=== PATIENT | female | born 1935 | race Caucasian/White ===

== ENCOUNTER 2019-09-16 15:51 | Inpatient (IN) | payer OTHER, MEDICAID ==
[~2019-09-16] VITALS: Ht 162.6 cm; Wt 57.7 kg
[~2019-09-16 15:51] MED LIST: CLOP75TA28 PO; ENAL20TA PO; METO-159 PO; OMEP20TA37 PO; TRIA25CA PO; ZOLP10TA6 PO
[2019-09-16] MEDS ORDERED: SODIUM CHLORIDE 0.9% 1,000 ML IV ONE (16:02)
[2019-09-16 16:38] LABS: Basophils # (auto) 0 10 ^3/uL (0-0.2); Basophils % (auto) 0.4 % (0.0-2.0); Eosinophils # (auto) 0 10 ^3/uL (0-0.8); Hemoglobin 11.7 g/dL (12.2-16.2); Monocytes # (auto) 0.8 10 ^3/uL (0-1.3); Neutrophils # (auto) 4.7 10 ^3/uL (1.6-8.6); Nucleated Red Blood Cells % 0.1 %; White Blood Cell 6.4 10^3/uL (4.4-10.8)
[2019-09-16 16:40] LABS: Eosinophils % (auto) 0.1 % (0.0-7.0); Hematocrit 33.5 % (36.0-46.0); Lymphocytes # (auto) 0.8 10 ^3/uL (0.4-5.4); Lymphocytes % (auto) 13.1 % (10.0-50.0); Mean Corpuscular Hemoglobin 35.4 pg (28.0-32.0); Mean Corpuscular Hgb Conc. 34.9 g/dL (32.0-36.0); Mean Corpuscular Volume 101.3 fL (80.0-100.0); Monocytes % (auto) 12.4 % (0.0-12.0); Platelet Count (auto) 168 10^3/uL (140-450); Red Blood Cells 3.31 10^6/uL (4.0-5.20); Red Cell Distribution Width 13.3 % (11.8-14.3)
[2019-09-16 16:45] LABS: Alanine Aminotransferase 25 U/L (13-56); Albumin 2.8 g/dL (3.4-5.0); Anion Gap 8 (5-15); Aspartate Aminotransferase 32 U/L (15-37); BUN/Creatinine Ratio 28.9; Blood Urea Nitrogen 28 mg/dL (7-18); Calcium 8.1 mg/dL (8.5-10.1); Carbon Dioxide 29 mmol/L (21-32); Chloride 97 mmol/L (98-107); GFR African American 70 mL/min; GFR Non-African American 58 mL/min; Glucose 109 mg/dL (74-106); Sodium 134 mmol/L (136-145)
[2019-09-16 16:49] LABS: Alkaline Phosphatase 53 U/L (45-117); Bilirubin, Total 1.4 mg/dL (0.2-1.0); Total Protein 6.5 g/dL (6.4-8.2)
[2019-09-16 16:54] LABS: Partial Thromboplastin Time 26.3 sec (23.64-32.05)
[2019-09-16 16:55] LABS: Potassium 2.7 mmol/L (3.5-5.1)
[2019-09-16 17:13] LABS: Urine Bacteria FEW /hpf (None Seen); Urine Blood 1+ /uL (Negative); Urine Hyaline Cast FEW /lpf (0 - 2); Urine Mucus FEW (None Seen); Urine Specific Gravity 1.015 (1.001-1.035); Urine WBC 45 /hpf (0 - 5); Urine WBC Clumps PRESENT /hpf (None Seen)
[2019-09-16] MEDS ORDERED: POTASSIUM EFFERVESENT TAB 25 MEQ PO ONE (17:30)
[2019-09-16] MEDS ORDERED: ACETAMINOPHEN 500 MG TAB PO PRN (19:15)
[2019-09-16] MEDS ORDERED: NITROGLYCERIN 0.4 MG SL TAB SL PRN (19:15)
[2019-09-16] MEDS ORDERED: ONDANSETRON HCL 4 MG/2 ML VIAL IV PRN (19:15)
[2019-09-16] MEDS ORDERED: MORPHINE SULF INJ 2 MG/ML SYRINGE 1ML IV PRN (19:15)
[2019-09-16] MEDS ORDERED: cefTRIAXone 1GM/50ML D5W 50 ML IV ONE (19:30)
[2019-09-16] MEDS: FAMOTIDINE 20 MG TAB PO SCH (19:33)
[2019-09-16] MEDS: SODIUM CHLORIDE 0.9% 1,000 ML IV SCH (19:33)
[2019-09-16 19:43] LABS: Cholesterol 172 mg/dL (< 200)
[2019-09-16 19:45] LABS: HDL Cholesterol 93 mg/dL (40-59); LDL Cholesterol 68 mg/dL (< 100); Triglycerides 85 mg/dL (< 150)
--- NOTE | 2019-09-16 20:05 | NUR ---
MS admit from ER [facility] admitted to [facility]. Patient oriented to RHONDA CHEUNG, RN primary RN, unit, room, bed, and unit policies regarding patient care and visiting hours. Patient weighed by bedscale and encouraged to call if they need something. All questions and concerns addressed, patient verbalized understanding.
[2019-09-16 20:15] VITALS: BP 123/65
--- NOTE | 2019-09-16 20:34 | NUR ---
Medication Reconciliation Spoke with patient's daughter Ercily regarding patient's home medications. Per patient and daughter, patient has Alzheimer's disease/forgetfulness and patient's daughter does not know currently know the home medications but daughter will call after she gets the home medications.
--- NOTE | 2019-09-16 21:45 | NUR ---
Wound photo taken of skin tear on left upper arm. Wound covered with optifoam.
[2019-09-16 22:00] VITALS: BP 123/65
--- NOTE | 2019-09-16 22:31 | NUR ---
Pain Medication Administration Patient complaining of left leg pain 8/10. Patient is requesting Tylenol 500mg PO to be administered. Explained pain medications to patient, patient verbalized understanding, continues to request Tylenol. Will administer Tylenol per MD order. Will reassess pain level and will continue to monitor.
--- NOTE | 2019-09-16 23:31 | NUR ---
Pain Level Reassessment Patient's pain level reassessed to be 5/10. Offered nonpharmacological interventions, patient states pain level is tolerable. No signs or symptoms of distress noted. Will continue to monitor.
[2019-09-17 05:00] VITALS: BP 124/58
[2019-09-17 05:54] LABS: Basophils # (auto) 0 10 ^3/uL (0-0.2); Eosinophils # (auto) 0 10 ^3/uL (0-0.8); Hemoglobin 10.5 g/dL (12.2-16.2); Lymphocytes # (auto) 0.5 10 ^3/uL (0.4-5.4); Monocytes # (auto) 0.7 10 ^3/uL (0-1.3); Neutrophils # (auto) 3.8 10 ^3/uL (1.6-8.6); Nucleated Red Blood Cells % 0.1 %; White Blood Cell 5.1 10^3/uL (4.4-10.8)
[2019-09-17 05:56] LABS: Basophils % (auto) 0.4 % (0.0-2.0); Eosinophils % (auto) 0.3 % (0.0-7.0); Hematocrit 29.7 % (36.0-46.0); Lymphocytes % (auto) 10.4 % (10.0-50.0); Mean Corpuscular Hemoglobin 36.1 pg (28.0-32.0); Mean Corpuscular Hgb Conc. 35.3 g/dL (32.0-36.0); Mean Corpuscular Volume 102.3 fL (80.0-100.0); Monocytes % (auto) 13.7 % (0.0-12.0); Neutrophils % (auto) 75.2 % (37.0-80.0); Platelet Count (auto) 149 10^3/uL (140-450); Red Cell Distribution Width 13.2 % (11.8-14.3)
[2019-09-17 06:27] LABS: Albumin 2.6 g/dL (3.4-5.0); BUN/Creatinine Ratio 31.4; Bilirubin, Total 1.3 mg/dL (0.2-1.0); Calcium 7.9 mg/dL (8.5-10.1); Total Protein 5.9 g/dL (6.4-8.2)
[2019-09-17 06:37] LABS: Potassium 2.9 mmol/L (3.5-5.1)
--- NOTE | 2019-09-17 06:53 | NUR ---
Critical K+ Level Paged Hospitalist. Critical lab value Potassium 2.9. Awaiting call back.
[2019-09-17] MEDS ORDERED: POTASSIUM CHL 20 Meq TABLET PO ONE (07:00)
--- NOTE | 2019-09-17 07:20 | NUR ---
Opening Shift Note Assumed care of patient, awake and alert, djiboutian speaking. No S/S of distress/SOB, reports lt leg pain. Instructed on POC and to call for assist PRN, will continue to monitor for changes Q1hr and PRN.
[2019-09-17] MEDS: SODIUM CHLORIDE 0.9% 1,000 ML IV SCH (09:01)
[2019-09-17] MEDS: cefTRIAXone 1GM/50ML D5W 50 ML IV SCH (09:02)
[2019-09-17] MEDS: FAMOTIDINE 20 MG TAB PO SCH (09:02)
[2019-09-17 09:13] VITALS: BP 136/61
[2019-09-17] MEDS ORDERED: INFLUENZA QUAD 2019-2020 0.5ml SYRG IM ONE (10:00)
[2019-09-17] MEDS ORDERED: PNEUMOCOCCAL VACC POLYS 25 MCG/0.5 ML VIAL IM ONE (10:00)
--- NOTE | 2019-09-17 10:50 | NUR ---
WOUND CARE NOTE: Wound care in to see patient per wound care request regarding skin tear on left arm that are noted present on admission. Bedside nurse took photograph of patient's wound upon admission for reference. Patient is 84 years old female with admitting diagnosis of Lt Intertrochanteric Femur Fracture. Patient is resting in bed in Rm. 278B. Patient is awake, alert and oriented. Patient denies any pain at this time. She needs assistance in turning and repositioning and her Elias score is 12. Skin/wound assessment done with the assistance of patient's nurse, UDAY Cohen. Patient's Lt upper arm noted with 1x1.5cm open partial thickness sin tears. Wound is red with pink and purple ecchymotic elizabeth wound, scant serous drainage, noted, no odor noted. On reports, patient had a fall at home sustaining skin tear to L arm and L femur fracture. Patient has pending ortho consult. Cleansed patient's Lt upper arm skin tear with NS, patted dry with gauze, applied Thera honey gel and covered wound with Optifoam gentle dressing. Assisted patient to turned to her Rt side, sacral, back and heels are examined, no other wound noted, no pressure injury noted. Patient tolerated well. Repositioned patient for comfort facing her Rt side, redistributed pressure points with pillows. Be din low position, call vega within reach, bed alarm on. RECOMMENDATION: Nursing to continue with BID/PRN cleaning and application of Barrier cream to sacral buttocks as preventative, Q3D/PRN dressing change to Lt upper arm skin tear per MD order, frequent turning and repositioning schedule as condition permits, redistribute pressure points with pillows,elevate heels on pillows, continue monitoring by wound care while patient is hospitalized. Addendum: 09/17/19 at 1224 by Marce Mancera RN Amended: Links added.
[2019-09-17] MEDS: MORPHINE SULF INJ 2 MG/ML SYRINGE 1ML IV PRN ×2 (11:36→21:52)
[2019-09-17 13:00] VITALS: BP 138/68
[2019-09-17] MEDS: HYDROcodone-ACET 5/325MG TAB PO PRN (13:41)
--- NOTE | 2019-09-17 14:47 | NUR ---
Nutrition Assessment Notes Please refer to link for full assessment notes. Est Energy needs: 2324-1595 kcals (20-23 kcal/kgBW) Est Protein needs: 64-70 gms/day (1.0-1.1 gm/kgBW) Will continue to monitor and reassess prn. Addendum: 09/17/19 at [address] Amended: Links added.
[2019-09-17 17:00] VITALS: BP 115/50
--- NOTE | 2019-09-17 19:10 | NUR ---
Opening Note Assumed care of patient, awake, very confused. Patient is asking for people that are obviously not part of the hospital team. She forgets where she is at and why. Constant reorientation needed. No S/S of distress/SOB. Instructed on POC and to call for assist PRN, will continue to monitor for changes Q1hr and PRN. Call light with in reach, bed on the lowest position. Room is near the nurse's station.
[2019-09-17 22:00] VITALS: BP 143/62
--- NOTE | 2019-09-17 22:20 | NUR ---
Patient was treated for pain, repositioned in bed for comfort. Will cont to monitor.
[2019-09-18] MEDS: SODIUM CHLORIDE 0.9% 1,000 ML IV SCH (00:26)
--- NOTE | 2019-09-18 01:42 | NUR ---
Patient resting, no signs of distress.
[2019-09-18 05:00] VITALS: BP 138/59
[2019-09-18] MEDS ORDERED: POTASSIUM CHL 20 Meq TABLET PO ONE ×2 (07:30→11:00)
[2019-09-18] MEDS ORDERED: POTASSIUM CHLORIDE 40 MEQ, LIDOCAINE 1% (LOCAL ANESTH.) 4 ML in SODIUM CHL 0.9% 100 ML IV ONE (07:30)
--- NOTE | 2019-09-18 07:30 | NUR ---
Opening Note Assumed patient care from VASILE RN.
--- NOTE | 2019-09-18 09:00 | NUR ---
Family Patient has moments of forgetfulness. Patient request that I speak to daughter regarding plan of care and if MD will speak with daughter.
--- NOTE | 2019-09-18 09:15 | NUR ---
MD Called Spoke with Dr. Lacey, will speak with daughter regarding plan of care/surgery, per family request.
[2019-09-18 09:33] VITALS: BP 147/72
[2019-09-18] MEDS: FAMOTIDINE 20 MG TAB PO SCH (09:41)
[2019-09-18] MEDS: cefTRIAXone 1GM/50ML D5W 50 ML IV SCH (09:41)
--- NOTE | 2019-09-18 10:13 | NUR ---
Spoke with Family Spoke with daughterChey, password confirmed. Per daughter, Dr. Lacey spoke with her and updated on surgery and possible risk factors. Per daughter, family agrees with need for surgery. Patient is agreeable to surgery at this time. Per designer writer, okay to keep consents previously signed by patient as patient, although patient has periods of forgetfullness, patient was able to tell RN her name, , year, place, and situation.
[2019-09-18 10:30] LABS: Calcium 8.1 mg/dL (8.5-10.1); Potassium 3.3 mmol/L (3.5-5.1)
[2019-09-18] MEDS ORDERED: POTASSIUM CHL 20MEQ/100ML 100 ML IV ONE (11:00)
--- NOTE | 2019-09-18 11:23 | NUR ---
Consult Pt with low BS of 12, skin tear left upper arm. Pt with 100% po of one recorded meal in RN doc. Will continue to monitor pt's skin status and po intake. Est Energy needs: 0861-7871 kcals (20-23 kcal/kgBW) Est Protein needs: 64-70 gms/day (1.0-1.1 gm/kgBW) Will continue to monitor and reassess prn. Consider adding ensure high protein once a day if pt po intake is inadequate
[2019-09-18] MEDS ORDERED: VANCOMYCIN HCL 1000 MG VL ONE (11:29)
--- NOTE | 2019-09-18 11:53 | NUR ---
MD Called Spoke with Dr. Lacey regarding patient plan of care. Per MD, patient will continue with electrolyte replacement, surgery to continue as scheduled tomorrow at 0700 if potassium levels return to normal limits.
[2019-09-18 12:28] VITALS: BP 149/64
[2019-09-18 15:56] LABS: BUN/Creatinine Ratio 22.4; Calcium 7.7 mg/dL (8.5-10.1); Potassium 5.1 mmol/L (3.5-5.1)
--- NOTE | 2019-09-18 16:09 | NUR ---
Assessment Patient is an 84-year-old female who is alert and oriented. Prior to admission patient lived home with her ex and functioned independently. Per Patient she can care for her own ADLs. Per patient she does not have any medical equipment now. Advised Patient there is a Social Service consult for SNF placement. Per Patient she is unsure if she would like to be placed at a rehabilitation and would like to speak to her ex first before making a decision. Informed patient a physical therapy evaluation will be needed if she decides to go to a [facility] nursing facility. Informed Patient she has the right to speak to a social director regarding all care. Informed Patient she has the right to participate in all discharge planning. Informed UDAY Wade a physical therapy evaluation will be needed in order to proceed with order. Addendum: 09/18/19 at 1614 by MICHAEL VINCENT Amended: Links added.
--- NOTE | 2019-09-18 16:22 | NUR ---
Called MD Left message with Dr. Akhil Ashby regarding patient status and request for physical therapy evaluation for SNF placement on discharge.
[2019-09-18 16:32] VITALS: BP 117/61
--- NOTE | 2019-09-18 19:26 | NUR ---
Closing Note Report given to VASILE FRYE.
--- NOTE | 2019-09-18 19:28 | NUR ---
Opening note Assumed care of patient. Patient alert and orientated x4. Monegasque speaking. No distress or SOB noted at this time. POC reviewed. Patient has no questions at this time. Patient states she wants pain medication. Medicated per MD orders. Bed locked in lowest position. Side rails up x2. Call light within reach. Bed alarm on. Will continue to monitor.
[2019-09-18] MEDS: MORPHINE SULF INJ 2 MG/ML SYRINGE 1ML IV PRN (20:36)
[2019-09-18] MEDS ORDERED: SOD CHL 0.9%/ KCL 40MEQ 1,000 ML IV SCH (21:00)
[2019-09-18] MEDS ORDERED: LACTATED RINGER'S 1,000 ML IV SCH (21:00)
[2019-09-18 22:00] VITALS: BP 138/63
--- NOTE | 2019-09-19 02:30 | NUR ---
ROUNDING Checked on patient. Patient awake. Stated to her She needs to turn to relieve pressure on her right side. Patient does not want to turn at this time. Educated patient on importance of turning. Patient still does not want to turn. Will continue to monitor.
[2019-09-19 05:00] VITALS: BP 145/80
--- NOTE | 2019-09-19 05:10 | NUR ---
Called Lab Called lab to follow up on ordered BMP. Lab said billing and quality technician is aware of order and will draw in 10 minutes. Will continue to wait for results.
--- NOTE | 2019-09-19 05:58 | NUR ---
Spoke with bench repair technician Still no blood draw. Found slab inspector to draw patients BMP. Explained patient needs blood drawn for surgery. bench repair technician states he will draw patients blood STEPH. Will continue to follow up.
[2019-09-19 06:48] LABS: Calcium 8.2 mg/dL (8.5-10.1)
--- NOTE | 2019-09-19 06:53 | NUR ---
Patient in OR Took patient to OR gave report to nurse Fernandez. Patient alert and orientated x4. No SOB or distress noted.Will continue to monitor.
--- NOTE | 2019-09-19 07:03 | NUR ---
Closing Note Report given to DAY SHIFT RN
[2019-09-19] MEDS ORDERED: ceFAZolin 1GM/50ML 50 ML IV ONE (07:13)
[2019-09-19] MEDS ORDERED: LIDOCAINE 1% (LOCAL ANESTH.) PF 5ml SDV ONE (07:26)
--- NOTE | 2019-09-19 07:30 | NUR ---
Opening Note Assumed patient care from NOC RN. Patient currently off unit for procedure.
[2019-09-19] MEDS ORDERED: ETOMIDATE (2MG/ML) 20ML VIAL IV ONE (07:37)
[2019-09-19] MEDS ORDERED: ROCURONIUM 10MG/ML 10ML VIAL IV ONE (07:39)
[2019-09-19] MEDS ORDERED: fentaNYL CITRATE 100 MCG/2 ML VL ONE (07:53)
[2019-09-19] MEDS ORDERED: BUPIVACAINE 0.25% INJ 50ML VIAL ONE (08:03)
[2019-09-19] MEDS ORDERED: HYDROmorphone HCL 2 MG/ML VL IV PRN (08:15)
[2019-09-19] MEDS ORDERED: ONDANSETRON HCL 4 MG/2 ML VIAL IV PRN (08:15)
[2019-09-19] MEDS ORDERED: NALOXONE HCL 0.4 MG/ML VIAL IV PRN (08:15)
[2019-09-19] MEDS ORDERED: NEOSTIGMINE 1 MG/ML INJ (10mg/10ML VIAL) ONE (08:38)
[2019-09-19] MEDS ORDERED: GLYCOPYRROLATE 0.2 MG/ML 1ML VIAL ONE (08:38)
[2019-09-19] MEDS: LACTATED RINGER'S 1,000 ML IV SCH ×2 (08:39→18:39)
--- NOTE | 2019-09-19 09:06 | NUR ---
Report Received Report received from MEDICATION RECONCILIATION TECHNICIAN.
--- NOTE | 2019-09-19 09:20 | NUR ---
Patient Returned Patient returned to unit from OR. Patient shows no signs of distress at this time. Respirations even and unlabored at 20. Blood pressure currently 126/57. Safety precautions in place. Patient requesting pain medication at this time. Will carry out orders.
[2019-09-19] MEDS: MORPHINE SULF INJ 2 MG/ML SYRINGE 1ML IV PRN ×3 (09:45→18:41)
[2019-09-19] MEDS: ceFAZolin 1GM/50ML 50 ML IV SCH ×3 (10:08→20:25)
[2019-09-19] MEDS: ENOXAPARIN SOD 40 MG/0.4 ML SYRINGE SC SCH (10:09)
[2019-09-19] MEDS: MULTIPLE VITAMIN TAB PO SCH (10:09)
[2019-09-19] MEDS: FAMOTIDINE 20 MG TAB PO SCH (10:09)
[2019-09-19] MEDS: cefTRIAXone 1GM/50ML D5W 50 ML IV SCH (11:15)
[2019-09-19] MEDS: HYDROcodone-ACET 5/325MG TAB PO PRN ×3 (11:16→20:26)
--- NOTE | 2019-09-19 12:35 | NUR ---
at Station Dr. Ashby at station. Per MD, obtain stat CBC and BMP, start nutrition supplements BID with meals.
[2019-09-19 13:33] VITALS: BP 113/63
[2019-09-19 13:36] LABS: Basophils # (auto) 0 10 ^3/uL (0-0.2); Eosinophils # (auto) 0 10 ^3/uL (0-0.8); Hemoglobin 10.6 g/dL (12.2-16.2); Neutrophils # (auto) 5.8 10 ^3/uL (1.6-8.6)
[2019-09-19 13:38] LABS: Basophils % (auto) 0.3 % (0.0-2.0); Eosinophils % (auto) 0.3 % (0.0-7.0); Hematocrit 30.6 % (36.0-46.0); Lymphocytes # (auto) 0.5 10 ^3/uL (0.4-5.4); Lymphocytes % (auto) 6.6 % (10.0-50.0); Mean Corpuscular Hemoglobin 35.2 pg (28.0-32.0); Mean Corpuscular Hgb Conc. 34.5 g/dL (32.0-36.0); Mean Corpuscular Volume 102.1 fL (80.0-100.0); Monocytes # (auto) 0.9 10 ^3/uL (0-1.3); Monocytes % (auto) 12.8 % (0.0-12.0); Platelet Count (auto) 172 10^3/uL (140-450); Red Blood Cells 2.99 10^6/uL (4.0-5.20); Red Cell Distribution Width 12.8 % (11.8-14.3); White Blood Cell 7.2 10^3/uL (4.4-10.8)
[2019-09-19 13:48] LABS: Potassium 3.6 mmol/L (3.5-5.1)
[2019-09-19 13:52] LABS: BUN/Creatinine Ratio 23.9; Calcium 8.3 mg/dL (8.5-10.1)
[2019-09-19] MEDS: SODIUM CHLOR 0.9% PF (SALINE LOCK) 10ML VIAL/SYR IV SCH ×2 (14:08→22:00)
[2019-09-19 16:33] VITALS: BP 117/58
[2019-09-19] MEDS ORDERED: Ensure Enlive Strawberry 8oz Bottle PO SCH (18:00)
[2019-09-19] MEDS: Glucerna Carbsteady SHAKE Vanilla 8oz PO SCH (18:05)
--- NOTE | 2019-09-19 19:20 | NUR ---
Opening note Assumed care of patient. Patient alert and orientated x4. No SOB or distress noted. Bed locked in lowest position. Side rails up x2. POC reviewed. Left hip surgical dressing dry and intact. Patient states pain at this time. Will medicate per doctors orders. Call light within reach. Will continue to monitor.
--- NOTE | 2019-09-19 19:21 | NUR ---
Closing Note Report given to Kika BURNETTE RN.
[2019-09-19 22:00] VITALS: BP 92/45
[2019-09-20] MEDS: LACTATED RINGER'S 1,000 ML IV SCH ×2 (00:53→14:10)
--- NOTE | 2019-09-20 03:15 | NUR ---
Rounding Patient asleep in bed. Chest evenly rising. No SOB or distress noted at this time. Will continue to monitor patient.
[2019-09-20] MEDS: HYDROcodone-ACET 5/325MG TAB PO PRN ×2 (03:59→11:35)
--- NOTE | 2019-09-20 04:00 | NUR ---
Pain Patient awake states pain 5/10. Medicated per MD orders. Will continue to monitor.
[2019-09-20 05:00] VITALS: BP 112/53
[2019-09-20] MEDS: SODIUM CHLOR 0.9% PF (SALINE LOCK) 10ML VIAL/SYR IV SCH ×2 (05:12→14:10)
--- NOTE | 2019-09-20 06:15 | NUR ---
Woods catheter dc'd Order to discontinue woods catheter. Woods dc'd with clean technique following deflation of balloon. Patient tolerated well with no complaints of pain. Continue care.
--- NOTE | 2019-09-20 07:33 | NUR ---
Closing note Endorsed care to day shift RN. No SOB or distress noted at this time
--- NOTE | 2019-09-20 07:34 | NUR ---
Opening Shift Note: Assumed care of patient, awake and alert. No S/S of distress/SOB. Bed in lowest locked position, side rails up x 2, call light within reach. Patient instructed on POC and to call for assist PRN, will continue to monitor for changes Q1hr and PRN.
[2019-09-20 07:44] LABS: Hematocrit 25.4 % (36.0-46.0)
[2019-09-20 08:01] LABS: Albumin 2.1 g/dL (3.4-5.0); Calcium 8.1 mg/dL (8.5-10.1); Potassium 4.5 mmol/L (3.5-5.1)
[2019-09-20 08:06] LABS: BUN/Creatinine Ratio 28.1; Bilirubin, Total 1.4 mg/dL (0.2-1.0); Total Protein 5.5 g/dL (6.4-8.2)
[2019-09-20 09:00] VITALS: BP 103/56
[2019-09-20] MEDS: ENOXAPARIN SOD 40 MG/0.4 ML SYRINGE SC SCH (10:07)
[2019-09-20] MEDS: cefTRIAXone 1GM/50ML D5W 50 ML IV SCH (10:07)
[2019-09-20] MEDS: MORPHINE SULF INJ 2 MG/ML SYRINGE 1ML IV PRN (10:07)
[2019-09-20] MEDS: FAMOTIDINE 20 MG TAB PO SCH (10:07)
[2019-09-20] MEDS: MULTIPLE VITAMIN TAB PO SCH (10:07)
[2019-09-20] MEDS: Glucerna Carbsteady SHAKE Vanilla 8oz PO SCH ×2 (10:08→18:20)
--- NOTE | 2019-09-20 10:45 | NUR ---
IV insertion: IV access obtained, via clean sterile technique by inserting 22 gauge catheter at right forearm after 2 attempt. IV secured properly. No trauma to site. Patient tolerated well.
[2019-09-20] MEDS ORDERED: SODIUM CHLORIDE 0.9% 500 ML IV ONE (11:45)
--- NOTE | 2019-09-20 12:48 | NUR ---
Patient has not urinated since removal of woods. Spoke with Dr. Phoebe Ashby. Per Symone "call back if it is over 200 mL." Symone also called and requested this nurse to call family regarding care at home verses placement group home facility placement. Will contact family and speak to the patient regarding D/C planning.
[2019-09-20 13:00] VITALS: BP 120/42
[2019-09-20 14:08] LABS: Hematocrit 25.1 % (36.0-46.0); Hemoglobin 8.8 g/dL (12.2-16.2)
--- NOTE | 2019-09-20 15:37 | NUR ---
Called Dr. Phoebe Ashby regarding patients inability to urinate. At this time bladder scan shows 227 mL. New orders placed, read back and verified.
[2019-09-20 16:26] LABS: Urine Bacteria FEW /hpf (None Seen); Urine Blood Negative /uL (Negative); Urine Hyaline Cast FEW /lpf (0 - 2); Urine Mucus FEW (None Seen); Urine Specific Gravity 1.022 (1.001-1.035); Urine WBC 25 /hpf (0 - 5)
--- NOTE | 2019-09-20 17:08 | NUR ---
Woods catheter insertion: Patient assessed and determined to be in need of woods catheter. Order obtained from MD. Patient educated on catheter and reason for insertion. All questions answered. Woods catheter 16 guage [place] inserted with clean sterile technique. Patient tolerated well.
[2019-09-20 17:15] VITALS: BP 103/56
[2019-09-20 17:51] VITALS: BP 119/55
--- NOTE | 2019-09-20 17:59 | NUR ---
Spoke with both Dr. Lacey and Dr. Santos, both state patient is clear for discharge
--- NOTE | 2019-09-20 18:15 | NUR ---
IV removal: Both IV DC'd with clean sterile technique, catheter fully intact. Pressure dressing applied to site. Patient tolerated well.
--- NOTE | 2019-09-20 18:21 | NUR ---
Discharge wound photo taken.
--- NOTE | 2019-09-20 18:39 | NUR ---
Called and spoke to daughter Chey about patient discharge to detention facility.
--- NOTE | 2019-09-20 18:44 | NUR ---
Called [facility] and gave report to Mindi. Patient to be DC'd with chuck per Dr. Phoebe Ashby request.
--- NOTE | 2019-09-20 18:53 | NUR ---
CLOSING NOTE: Patient resting in bed. No S/S of pain, distress or SOB at this time. Care endorsed to NOC RN
--- NOTE | 2019-09-20 19:35 | NUR ---
Discharge instructions PREPARED BY DAY SHIFT RN AND given as ordered. Encourage to follow up with PMD as instructed. All questions and concerns addressed. Patient verbalized understanding. Medication reconciliation form completed and copy given to patient. IV removed with catheter intact, pressure dressing applied, woods catheter GO WITH PATIENT TO [facility]. Patient taken to vehicle via [facility] with all personal belongings, accompanied by [facility] staff. No distress noted at time of departure.
== END 2019-09-20 19:35 | DRG 481 ==
LOC: EDBD 15:51 → ER 15:51 → OVERFLOW 15:52 → WEST WING 20:35
PROVIDERS: ADMIT Nurse Practitioner Acute Care; ATTEND Internal Medicine
PROC: BW1CZZZ Fluoroscopy of Lower Extremity (ICD-10-PCS; 2019-09-19)
PROC: 0QS734Z Reposition Left Upper Femur with Internal Fixation Device, Percutaneous Approach (ICD-10-PCS; principal; 2019-09-19 07:31)
DX: S72.142A Displaced intertrochanteric fracture of left femur, initial encounter for closed fracture (principal); N30.00 Acute cystitis without hematuria; E87.1 Hypo-osmolality and hyponatremia; E44.0 Moderate protein-calorie malnutrition; D53.9 Nutritional anemia, unspecified; E87.6 Hypokalemia; N18.3 Chronic kidney disease, stage 3 (moderate); K21.9 Gastro-esophageal reflux disease without esophagitis; I12.9 Hypertensive chronic kidney disease with stage 1 through stage 4 chronic kidney disease, or unspecified chronic kidney disease; W01.0XXA Fall on same level from slipping, tripping and stumbling without subsequent striking against object, initial encounter; Z68.21 Body mass index [BMI] 21.0-21.9, adult; Y92.009 Unspecified place in unspecified non-institutional (private) residence as the place of occurrence of the external cause; Z79.899 Other long term (current) drug therapy; Z82.0 Family history of epilepsy and other diseases of the nervous system; Z82.3 Family history of stroke; Z82.49 Family history of ischemic heart disease and other diseases of the circulatory system; Z90.49 Acquired absence of other specified parts of digestive tract; Z03.818 Encounter for observation for suspected exposure to other biological agents ruled out; Y93.89 Activity, other specified; Y99.8 Other external cause status; T50.2X5A Adverse effect of carbonic-anhydrase inhibitors, benzothiadiazides and other diuretics, initial encounter
CPT/HCPCS: 36415; 51702; 70450; 71045; 72192; 73501; 73502; 76000; 80048; 80053; 80061; 81001; 82570; 83735; 84156; 84300; 84443; 84484; 85014; 85018; 85025; 85610; 85730; 86850; 86900; 86901; 87086; 93306; 96361; 96365; 97110; 97163; 99291; A4565; C1713; G0378; J0690; J0696; J2001; J3490; J7060

== ENCOUNTER 2020-08-01 21:34 | Emergency (ER) | payer OTHER, MEDICAID ==
[~2020-08-01] VITALS: Ht 157.5 cm; Wt 63.5 kg
[~2020-08-01 21:34] MED LIST changes: -ENAL20TA PO; +ENAL20TA8 PO
[2020-08-02] MEDS ORDERED: ACETAMINOPHEN 500 MG TAB PO ONE (04:15)
[2020-08-02 05:03] VITALS: BP 143/64
== END 2020-08-02 06:20 | disposition home or self-care (01) ==
LOC: ER 21:34 → EDBD 21:34 → ER 08-02 06:20
DX: S00.83XA Contusion of other part of head, initial encounter (principal); I10 Essential (primary) hypertension; F12.10 Cannabis abuse, uncomplicated; Z90.49 Acquired absence of other specified parts of digestive tract; W18.39XA Other fall on same level, initial encounter; Y93.89 Activity, other specified; Y92.89 Other specified places as the place of occurrence of the external cause; Y99.8 Other external cause status
CPT/HCPCS: 70450; 72125

== ENCOUNTER 2023-04-17 15:48 | Inpatient (IN) | payer OTHER, MEDICAID ==
[~2023-04-17] VITALS: Ht 165.1 cm; Wt 71.0 kg
[~2023-04-17 15:48] MED LIST changes: +ENAL1TAB48 PO; -ENAL20TA8 PO
[2023-04-17 19:17] LABS: Basophils # (auto) 0.1 10 ^3/uL (0-0.2); Basophils % (auto) 1.2 % (0.0-2.0); Eosinophils # (auto) 0 10 ^3/uL (0-0.8); Eosinophils % (auto) 0.4 % (0.0-7.0); Hematocrit 36.7 % (36.0-46.0); Lymphocytes # (auto) 1.1 10 ^3/uL (0.4-5.4); Lymphocytes % (auto) 18.6 % (10.0-50.0); Mean Corpuscular Hemoglobin 31.5 pg (28.0-32.0); Mean Corpuscular Hgb Conc. 32.6 g/dL (32.0-36.0); Mean Corpuscular Volume 96.6 fL (80.0-100.0); Monocytes # (auto) 0.6 10 ^3/uL (0-1.3); Monocytes % (auto) 10.3 % (0.0-12.0); Neutrophils % (auto) 69.5 % (37.0-80.0); Nucleated Red Blood Cells % 0.4 %; Red Cell Distribution Width 15.1 % (11.8-14.3); White Blood Cell 5.7 10^3/uL (4.4-10.8)
[2023-04-17 19:35] LABS: Alanine Aminotransferase 38 U/L (7-40); Alkaline Phosphatase 62 U/L (46-116); Anion Gap 9 (5-15); BUN/Creatinine Ratio 41.7 (10.0-20.0); Blood Urea Nitrogen 53 mg/dL (9-23); Calcium 9.1 mg/dL (8.7-10.4); Carbon Dioxide 28 mmol/L (20-30); Chloride 104 mmol/L (98-107); Glucose 102 mg/dL (74-106); Potassium 4.6 mmol/L (3.5-5.1); Sodium 141 mmol/L (136-145)
[2023-04-17 19:36] LABS: Aspartate Aminotransferase 42 U/L (13-40); Bilirubin, Total 0.8 mg/dL (0.2-1.0); Total Protein 7.3 g/dL (5.7-8.2)
[2023-04-17] MEDS ORDERED: ENOXAPARIN SOD 40 MG/0.4 ML SYRINGE SC ONE (20:00)
[2023-04-17] MEDS ORDERED: IPRATROPIUM BROM 0.5 MG/2.5ML INH SOL NEB ONE (20:00)
[2023-04-17] MEDS ORDERED: ALBUTEROL SULF 2.5 MG/0.5ML(0.5%) NEB SOLN NEB ONE (20:00)
[2023-04-17] MEDS ORDERED: FUROSEMIDE 40 MG/4 ML VIAL IV ONE (20:30)
[2023-04-17] MEDS ORDERED: AZITHROMYCIN 500MG/ 250ML 250 ML IV ONE (20:30)
[2023-04-17] MEDS ORDERED: ACETAMINOPHEN 325 MG TAB PO PRN (21:15)
[2023-04-17] MEDS ORDERED: ONDANSETRON HCL 4 MG/2 ML VIAL IV PRN (21:15)
[2023-04-17] MEDS ORDERED: NITROGLYCERIN 0.4 MG SL TAB SL PRN (21:15)
[2023-04-17] MEDS ORDERED: ALBUTEROL SULF 2.5 MG/0.5ML(0.5%) NEB SOLN NEB PRN (21:15)
[2023-04-17] MEDS ORDERED: HYDROcodone-ACET 5/325MG TAB PO PRN (21:15)
[2023-04-17] MEDS ORDERED: MORPHINE SULFATE INJ 2 MG/ml SYRG IV PRN (21:15)
[2023-04-17] MEDS ORDERED: hydrALAZINE HCL 10 MG TAB PO PRN (21:15)
[2023-04-17 22:00] VITALS: PULSE 78; RESP 18; O2SAT 98
[2023-04-17] MEDS: ATORVASTATIN 20 MG TAB PO SCH (22:16)
[2023-04-17] MEDS: ASPirin 81 mg TAB PO SCH (22:16)
[2023-04-17] MEDS: methylPREDNISolone SOD SUCC 40 MG/ML VL IV SCH (22:17)
[2023-04-17] MEDS: ENOXAPARIN SOD 80 MG/0.8ML SYRINGE SC SCH (22:34)
[2023-04-17 22:50] VITALS: BP 144/84; PULSE 92; RESP 18; TEMP 97.5; O2SAT 95
[2023-04-17 23:21] VITALS: O2SAT 97
[2023-04-18] VITALS (17 sets, daily range): BP systolic 18–137; BP diastolic 67–80; PULSE 70–142; RESP 14–26; TEMP 97.4–98.8; O2SAT 91–100
[2023-04-18] MEDS ORDERED: AMIODARONE BOLUS KIT 100 ML IV ONE (02:15)
[2023-04-18] MEDS ORDERED: ENOXAPARIN SOD 40 MG/0.4 ML SYRINGE SC ONE (02:15)
[2023-04-18] MEDS ORDERED: AMIODARONE 450mg/250ml AE 250 ML IV SCH (02:30)
[2023-04-18 07:00] LABS: Anion Gap 10 (5-15); Carbon Dioxide 30 mmol/L (20-30); Chloride 102 mmol/L (98-107); Potassium 3.9 mmol/L (3.5-5.1); Sodium 142 mmol/L (136-145)
[2023-04-18 07:06] LABS: BUN/Creatinine Ratio 36.7 (10.0-20.0); Blood Urea Nitrogen 51 mg/dL (9-23); Glucose 184 mg/dL (74-106); Triglycerides 79 mg/dL (< 150)
[2023-04-18 07:07] LABS: LDL Cholesterol 61 mg/dL (< 100)
[2023-04-18 07:08] LABS: Cholesterol 115 mg/dL (< 200); HDL Cholesterol 47 mg/dL (40-59)
[2023-04-18] MEDS: IPRATROPIUM BROM 0.5 MG/2.5ML INH SOL NEB SCH ×4 (07:19→20:02)
[2023-04-18] MEDS: AMIODARONE 450mg/250ml AE 250 ML IV SCH ×2 (08:46→23:16)
[2023-04-18] MEDS: FAMOTIDINE 20 MG TAB PO SCH (08:47)
[2023-04-18] MEDS: methylPREDNISolone SOD SUCC 40 MG/ML VL IV SCH ×2 (08:47→22:01)
[2023-04-18] MEDS: ASPirin 81 mg TAB PO SCH (08:47)
[2023-04-18] MEDS: ENOXAPARIN SOD 80 MG/0.8ML SYRINGE SC SCH (08:47)
[2023-04-18] MEDS ORDERED: levoFLOXacin 500MG 100 ML IV ONE (10:00)
[2023-04-18 12:18] LABS: COVID19 ANTIGEN SOFIA FIA NEGATIVE (NEGATIVE); Rapid Influenza A Negative (Negative); Rapid Influenza B Negative (Negative)
[2023-04-18 14:56] LABS: Urine Bacteria MOD /hpf (None Seen); Urine Blood Negative /uL (Negative); Urine Clarity Clear (Clear); Urine Color Yellow (Yellow); Urine Protein, UAD TRACE (Negative); Urine WBC 2 /hpf (0 - 5); Urine pH 5.5 (5.0-8.0)
[2023-04-18 15:02] LABS: Amphetamine Screen, Urine Neg (NEGATIVE); Barbiturate Scree,Urine Neg (NEGATIVE); Benzodiazephine Screen, Urine Neg (NEGATIVE)
[2023-04-18 15:03] LABS: Cannabinoid Screen, Urine Neg (NEGATIVE); Cocaine Screen, Urine Neg (NEGATIVE); Opiate Scree,Urine Neg (NEGATIVE); Phencyclidine Screen, Urine Neg (NEGATIVE)
[2023-04-18 15:22] LABS: Urine Specific Gravity > 1.050 (1.001-1.035)
[2023-04-18] MEDS: SOD CHL 0.45% 1,000 ML IV SCH (19:02)
[2023-04-18] MEDS ORDERED: APIXABAN 2.5 MG TAB PO SCH (22:00)
[2023-04-18] MEDS: ATORVASTATIN 20 MG TAB PO SCH (22:01)
[2023-04-19] VITALS (14 sets, daily range): BP systolic 123–151; BP diastolic 68–82; PULSE 19–125; RESP 16–96; TEMP 97.3–97.8; O2SAT 91–100
[2023-04-19 06:11] LABS: Basophils # (auto) 0 10 ^3/uL (0-0.2); Basophils % (auto) 0.1 % (0.0-2.0); Eosinophils # (auto) 0 10 ^3/uL (0-0.8); Hematocrit 35.4 % (36.0-46.0); Hemoglobin 11.4 g/dL (12.2-16.2); Lymphocytes # (auto) 0.3 10 ^3/uL (0.4-5.4); Mean Corpuscular Hemoglobin 30.8 pg (28.0-32.0); Mean Corpuscular Hgb Conc. 32.2 g/dL (32.0-36.0); Mean Corpuscular Volume 95.5 fL (80.0-100.0); Monocytes # (auto) 0.3 10 ^3/uL (0-1.3); Monocytes % (auto) 6.8 % (0.0-12.0); Neutrophils # (auto) 3.9 10 ^3/uL (1.6-8.6); Neutrophils % (auto) 86.1 % (37.0-80.0); Nucleated Red Blood Cells % 0.2 %; Red Blood Cells 3.71 10^6/uL (4.0-5.20); Red Cell Distribution Width 14.6 % (11.8-14.3); White Blood Cell 4.5 10^3/uL (4.4-10.8)
[2023-04-19 06:23] LABS: Chloride 100 mmol/L (98-107); Potassium 4.3 mmol/L (3.5-5.1); Sodium 138 mmol/L (136-145)
[2023-04-19 06:24] LABS: Anion Gap 14 (5-15); Calcium 8.6 mg/dL (8.5-10.1); Carbon Dioxide 24 mmol/L (20-30); INR 1.28 (0.9-1.15); Partial Thromboplastin Time 29.3 SEC (24.5-34.5); Prothrombin Time 13.2 sec (9.3-11.8)
[2023-04-19] MEDS: IPRATROPIUM BROM 0.5 MG/2.5ML INH SOL NEB SCH ×3 (06:25→18:06)
[2023-04-19 06:29] LABS: Glucose 155 mg/dL (74-106)
[2023-04-19 06:30] LABS: Blood Urea Nitrogen 61 mg/dL (9-23)
[2023-04-19] MEDS ORDERED: METOPROLOL TARTRATE 1MG/1ML-5ML VIAL IV ONE (08:45)
[2023-04-19] MEDS ORDERED: FUROSEMIDE 20 MG/2 ML VIAL IV ONE (08:45)
[2023-04-19] MEDS: SOD CHL 0.45% 1,000 ML IV SCH (09:30)
[2023-04-19] MEDS: ASPirin 81 mg TAB PO SCH (09:49)
[2023-04-19] MEDS: PANTOPRAZOLE 40 MG TAB PO SCH (09:50)
[2023-04-19] MEDS: APIXABAN 2.5 MG TAB PO SCH ×2 (09:51→22:08)
[2023-04-19] MEDS: FAMOTIDINE 20 MG TAB PO SCH (09:52)
[2023-04-19] MEDS: methylPREDNISolone SOD SUCC 40 MG/ML VL IV SCH (09:52)
[2023-04-19] MEDS ORDERED: levoFLOXacin 250MG 50 ML IV SCH (10:00)
[2023-04-19] MEDS ORDERED: METOPROLOL TARTRATE 25 MG TAB PO SCH (10:00)
[2023-04-19] MEDS ORDERED: FUROSEMIDE 20 MG/2 ML VIAL IV SCH (18:00)
[2023-04-19] MEDS ORDERED: AMIODARONE HCL 200 MG TAB PO ONE (19:00)
[2023-04-19] MEDS: AMIODARONE HCL 200 MG TAB PO SCH (22:00)
[2023-04-19] MEDS: ATORVASTATIN 20 MG TAB PO SCH (22:08)
[2023-04-19] MEDS: predniSONE 20 MG TAB PO SCH (22:08)
[2023-04-19] MEDS: METOPROLOL TARTRATE 25 MG TAB PO SCH (22:08)
[2023-04-20] VITALS (8 sets, daily range): BP systolic 128–146; BP diastolic 66–78; PULSE 71–85; RESP 17–19; TEMP 97.4–97.8; O2SAT 92–100
[2023-04-20] MEDS ORDERED: FUROSEMIDE 20 MG TAB PO SCH (06:00)
[2023-04-20] MEDS: IPRATROPIUM BROM 0.5 MG/2.5ML INH SOL NEB SCH ×2 (06:55→13:23)
[2023-04-20 08:37] LABS: Chloride 100 mmol/L (98-107); Sodium 138 mmol/L (136-145)
[2023-04-20 08:38] LABS: Anion Gap 14 (5-15); Calcium 8.1 mg/dL (8.5-10.1); Carbon Dioxide 24 mmol/L (20-30)
[2023-04-20 08:43] LABS: BUN/Creatinine Ratio 25.6 (10.0-20.0); Glucose 128 mg/dL (74-106)
[2023-04-20 08:48] LABS: Blood Urea Nitrogen 75 mg/dL (9-23)
[2023-04-20] MEDS: APIXABAN 2.5 MG TAB PO SCH (09:24)
[2023-04-20] MEDS: PANTOPRAZOLE 40 MG TAB PO SCH (09:24)
[2023-04-20] MEDS: FAMOTIDINE 20 MG TAB PO SCH (09:24)
[2023-04-20] MEDS: ASPirin 81 mg TAB PO SCH (09:24)
[2023-04-20] MEDS: predniSONE 20 MG TAB PO SCH (09:24)
[2023-04-20] MEDS: AMIODARONE HCL 200 MG TAB PO SCH (09:25)
[2023-04-20] MEDS: METOPROLOL TARTRATE 25 MG TAB PO SCH (09:27)
[2023-04-20] MEDS ORDERED: levoFLOXacin 250 MG TAB PO SCH (10:00)
[2023-04-20] MEDS ORDERED: DOXY-448 PO (12:10)
[2023-04-20] MEDS ORDERED: CLOP75TA28 PO (12:10)
[2023-04-20] MEDS ORDERED: MET25T PO (12:10)
== END 2023-04-20 18:24 | disposition home or self-care (01) | DRG 280 ==
LOC: ER 15:48 → EDBD 15:48 → TELE 21:16 → TELE-EAST 23:51 → TELE-WESTW 04-20 03:39
PROVIDERS: ADMIT Nurse Practitioner Family; ATTEND Nurse Practitioner Family
DX: I48.0 Paroxysmal atrial fibrillation (principal); I50.23 Acute on chronic systolic (congestive) heart failure; I21.4 Non-ST elevation (NSTEMI) myocardial infarction; J18.9 Pneumonia, unspecified organism; J96.01 Acute respiratory failure with hypoxia; I13.0 Hypertensive heart and chronic kidney disease with heart failure and stage 1 through stage 4 chronic kidney disease, or unspecified chronic kidney disease; N17.9 Acute kidney failure, unspecified; I48.20 Chronic atrial fibrillation, unspecified; G30.9 Alzheimer's disease, unspecified; F02.80 Dementia in other diseases classified elsewhere, unspecified severity, without behavioral disturbance, psychotic disturbance, mood disturbance, and anxiety; N18.9 Chronic kidney disease, unspecified; E78.5 Hyperlipidemia, unspecified; Z20.822 Contact with and (suspected) exposure to COVID-19; I08.3 Combined rheumatic disorders of mitral, aortic and tricuspid valves; Z86.73 Personal history of transient ischemic attack (TIA), and cerebral infarction without residual deficits; Z87.891 Personal history of nicotine dependence; Z79.899 Other long term (current) drug therapy; Z90.49 Acquired absence of other specified parts of digestive tract; Z82.3 Family history of stroke; Z82.49 Family history of ischemic heart disease and other diseases of the circulatory system; Z79.01 Long term (current) use of anticoagulants
CPT/HCPCS: 36415; 70450; 71045; 71275; 74176; 76775; 80048; 80053; 80061; 80307; 81001; 83036; 83605; 83735; 83880; 84443; 84484; 85025; 85379; 85610; 85730; 87040; 87426; 87804; 93005; 93306; 93970; 94640; 97110; 97116; 97163; 97530; G0378; J1956

== ENCOUNTER 2024-04-25 12:15 | Inpatient (IN) | payer OTHER, MEDICAID ==
[~2024-04-25] VITALS: Ht 162.6 cm; Wt 65.2 kg
[~2024-04-25 12:15] MED LIST changes: +DOXY100C79 PO; -ENAL1TAB48 PO; +MET25T PO; +METO-158 PO; -METO-159 PO; -OMEP20TA37 PO; -TRIA25CA PO; -ZOLP10TA6 PO
--- NOTE | 2024-04-25 12:33 | ED.PDOC ---
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 Per EMS they found her heart rate to be in the 40s. Patient took her morning metoprolol. Patient is on Plavix. Patient was given 1 mg of atropine in route without any significant changes. On arrival patient blood pressure was in the 180s systolically. EMS reports that her blood pressure was in the 200s at home. Patient denies any other associated symptoms. Incidentally patient when asked she said that his stool is black today. Initial Vital Signs: Temp : BP:174/60 HR:47 RR:31 SpO2: Past Medical History: HTN Past Surgical History: Denies Social History: Denies smoking, ETOH, or drug use. Medications: METOPROL, PLAVIX Allergies: NKDA HPI: Poor Historian. Past Medcial History: Past Surgical History: REVIEW OF SYSTEMS: CONSTITUTIONAL: Denies acute: fever, diaphoresis, chills, HEAD: Denies acute: headache, photophobia Eyes: Denies acute: Double vision, vision loss, eye pain, eye discharge. EARS: Denies acute: tinnitus, hearing loss, ear discharge, ear pain, THROAT: Denies acute: sore throat, swelling, difficulty swallowing , pain with swallowing, change in voice. NECK: Denies acute: neck pain, neck swelling, stiff neck. HEART: Denies acute : chest pain, palpitations, LUNGS: Denies acute: SOB, wheezing, cough, hemoptysis ABDOMEN: Denies acute: abdominal pain, Nausea, Vomiting, diarrhea, , hematemesis, hematochezia SKIN: Denies acute: rash, redness, lesions, itchiness. EXTREMITIES: Denies acute: calf pain, numbness, tingling, weakness, denies pain in extremity. Denies acute: Low back pain. Neuro: Denies acute: focal neurological deficit, motor or sensory focal neurological deficit, tremors, seizure like activity, confusion, change in mental status, loss of bowel or bladder function, cauda equina like symptoms. : Denies acute: dysuria, hematuria, flank pain, increase in urinary frequency. PSYCH: Denies acute: hallucination, suicidal ideation, homicidal ideation. FEMALE: Denies acute: abnormal vaginal bleeding, foul odor, unusual discharge. PHYSICAL EXAM: General: no acute distress, awake and alert. Head: normocephalic, atraumatic. Neck: supple, trachea is midline, no swelling. Throat: Normal phonation. Eyes:, no erythema, no purulent discharge, no proptosis, no icterus. Heart: regular bradycardia, no significant murmur appreciated. Lungs: no apparent respiratory distress, Able to speak in full sentences. No wheezing, no rhonchi, no crackles. No stridors Clear to auscultation bilaterally. Abdomen: non tender to palpation, non distended, soft, no guarding, no rebound, + bowel sounds. Neuro: Awake, Alert, oriented to name, self, situation, follows commands GCS=15. Speech is normal. Skin: no petechia, no purpura, no cyanosis, non-pale, not jaundice. Lower extremities: --no - Pitting edema no deformity, no focal swelling, no calf TTP. Makes eye contact. moves all four extremities. Face: no apparent facial droop. Time Seen by MD: 12:10 Reviewed Notes: Nurses Notes, House Director Notes, Medications, Allergies Allergies: Coded Allergies: NO KNOWN ALLERGIES (Unverified , 08/11/09) Home Meds Active Scripts Doxycycline (Monohydrate) (Doxycycline) 100 Mg Cap, 100 MG PO BID, #10 CAP Prov:MATIAS LOPEZ MD 04/20/23 Metoprolol Tartrate (Lopressor) 25 Mg Tb, 50 MG PO BID, #120 TAB Take 2 tablets (50 mg) twice a day. Hold for heart rate below 60. Prov:MATIAS LOPEZ MD 04/20/23 Clopidogrel Bisulfate (Plavix) 75 Mg Tab, 1 TAB PO DAILY, #30 TAB Prov:MATIAS LOPEZ MD 04/20/23 Information Source: Patient, Emergency Med Personnel Mode of Arrival: EMS Severity: Moderate Timing: Days Duration: Since onset Prehospital treatment: 12 Lead EKG, Other (1 MG ATROPINE ) Cardiac Risk Factors: None PE Risk Factors: None History of: None Associated Signs and Symptoms: None Was a procedure done? Was a procedure done?: No X-Ray, Labs, Meds, VS Vital Signs Date Time Temp Pulse Resp B/P (MAP) Pulse Ox O2 Delivery O2 Flow Rate FiO2 1/3/25 16:00 42 04/25/24 15:33 42 04/25/24 15:30 98.4 42 10 160/44 (82) 98 98.4 04/25/24 14:56 44 13 99 Room Air* 0 21 04/25/24 14:35 176/60 04/25/24 13:41 48 04/25/24 13:30 97.7 44 13 176/60 (98) 99 97.7 04/25/24 12:32 97.7 47 18 174/60 (98) 95 Lab Test 04/25/24 16:26 04/25/24 14:35 04/25/24 13:15 Range/Units Troponin I High Sensitivity 203 *H 209 *H 212 *H </=34 ng/L White Blood Count 5.0 4.4-10.8 10^3/uL Red Blood Count 4.09 4.0-5.20 10^6/uL Hemoglobin 13.3 12.2-16.2 g/dL Hematocrit 39.9 36.0-46.0 % Mean Corpuscular Volume 97.7 80.0-100.0 fL Mean Corpuscular Hemoglobin 32.6 H 28.0-32.0 pg Mean Corpuscular Hemoglobin Concent 33.4 32.0-36.0 g/dL Red Cell Distribution Width 13.9 11.8-14.3 % Platelet Count 169 140-450 10^3/uL Mean Platelet Volume 9.5 6.9-10.8 fL Neutrophils (%) (Auto) 73.6 37.0-80.0 % Lymphocytes (%) (Auto) 16.3 10.0-50.0 % Monocytes (%) (Auto) 9.2 0.0-12.0 % Eosinophils (%) (Auto) 0.4 0.0-7.0 % Basophils (%) (Auto) 0.5 0.0-2.0 % Neutrophils # (Auto) 3.7 1.6-8.6 10 ^3/uL Lymphocytes # (Auto) 0.8 0.4-5.4 10 ^3/uL Monocytes # (Auto) 0.5 0-1.3 10 ^3/uL Eosinophils # (Auto) 0 0-0.8 10 ^3/uL Basophils # (Auto) 0 0-0.2 10 ^3/uL Nucleated Red Blood Cells 0.0 % Prothrombin Time 11.1 9.3-11.8 sec Prothrombin Time INR 1.05 0.9-1.15 Activated Partial Thromboplast Time 28.2 24.5-34.5 SEC Sodium Level 141 136-145 mmol/L Potassium Level 4.1 3.5-5.1 mmol/L Chloride Level 103 98-107 mmol/L Carbon Dioxide Level 30 20-31 mmol/L Anion Gap 8 5-15 Blood Urea Nitrogen 38 H 9-23 mg/dL Creatinine 1.27 H 0.550-1.02 mg/dL Glomerular Filtration Rate Calc 41 >90 mL/min BUN/Creatinine Ratio 29.9 H 10.0-20.0 Serum Glucose 115 H 74-106 mg/dL Hemoglobin A1c 5.8 H <5.7 % A1C Lactic Acid Level 1.7 0.4-2.0 mmol/L Calcium Level 9.7 8.7-10.4 mg/dL Magnesium Level 2.4 1.6-2.6 mg/dL Total Bilirubin 1.4 H 0.2-1.0 mg/dL Aspartate Amino Transferase (AST) 17 13-40 U/L Alanine Aminotransferase (ALT) 14 7-40 U/L Alkaline Phosphatase 78 46-116 U/L B-Type Natriuretic Peptide > 5000.00 0-100 pg/mL Total Protein 7.0 5.7-8.2 g/dL Albumin 4.0 3.2-4.8 g/dL Triglycerides Level 56 < 150 mg/dL Cholesterol Level 156 < 200 mg/dL LDL Cholesterol 67 < 100 mg/dL HDL Cholesterol 81 H 40-59 mg/dL Thyroid Stimulating Hormone (TSH) 2.25 0.55-4.78 uIU/mL Current Medications Medications (Trade) Dose Ordered Sig/Neville Route Start Time Stop Time Status Last Admin Sodium Chloride 1,000 ml @ 1,000 mls/hr Q1H ONCE IV 04/25/24 12:30 04/25/24 13:29 DC 04/25/24 13:39 Glucagon (Glucagen) 1 mg ONCE ONCE IV 04/25/24 12:30 04/25/24 12:31 DC 04/25/24 13:00 Ondansetron HCl (Zofran) 8 mg ONCE ONCE IV 04/25/24 12:30 04/25/24 12:31 DC 04/25/24 13:00 Hydralazine HCl (Apresoline Injection) 10 mg ONCE ONCE IV 04/25/24 13:45 04/25/24 13:46 DC 04/25/24 14:35 Sodium Chloride 1,000 ml @ 60 mls/hr [id number] IV 04/25/24 16:30 04/25/24 18:24 [place] [id number] Ph: [phone] DIAGNOSTIC IMAGING Diagnostic Imaging Report : [id number] Signed PATIENT: NILSON ROSSCT: [id number] UNIT: [id number] : 1935 LOC: ER ROOM / BED: / AGE / SEX: 88 / F ADM STATUS: REG ER SERVICE 1226 ORDERING PHYSICIAN: DEBI ROWE DO PROCEDURE(s): CXRP - CHEST PORTABLE REASON: weak/dizzy ORDER NUMBER(s): [id number], ACCESSION NUMBER(s): [id number] CHEST RADIOGRAPH Indication: weak/dizzy Technique: Single frontal view of the chest was obtained COMPARISON: XY CHEST PORTABLE on DOS: 04/17/23, CHEST PORTABLE on DOS: 09/16/19 FINDINGS: Lines and Tubes: None Lungs: Congestion Pleura: No effusion. No pneumothorax. Cardiomediastinal contours: Cardiomegaly Bones: Unremarkable IMPRESSION: Mild congestion Cardiomegaly. ATED BY: KIKO HENRY MD DICTATED DATE/TIME: 04/25/241324 SIGNED BY: KIKO HENRY MD SIGNED DATE/TIME: 04/25/24 132 CC: Time of 1ST Reevaluation: 12:36 (The case was discussed with the detail supervisor on-call team (HPI, physical exam, labs and diagnostic tests that were available at the time of disposition, ED course, treatment plan) on the phone. They agreed with our management of glucagon. Patient's blood pressure is stable. Is patient becomes unstable they recommend to start the patient on dopamine drip. Dr. Toscano reviewed the EKG and agrees with our dispositioned. He will follow in consult.) Reevaluation 1ST: Unchanged Patient Education/Counseling: Diagnosis, Treatment Family Education/Counseling: No Family Present Comments Patient presented with the above HPI.------ workup was initiated. patient was found with the above mentioned diagnosis. the following medications were ordered: the following tests were ordered: LABS, UA, CXR, EKG Patient ED course and VS have been stabilized. Patient has been reassessed in the ED and remained in a stable condition. Pertinent incidental findings were discussed with the patient and/or family. Patient/family voices understanding and is agreeable with plan. Patient has been observed in the ED adequate length of time to insure improvement/stability. Escalation of care considered: Consideration of escalation to observation or admission Patient was ADMITTED to the medicine team for further evaluation and treatment of their presentation. Patient was DISCHARGED home in a stable condition. All the reports of any imaging studies that were ordered by myself were reviewed by myself. Departure 1 Departure Time of Disposition: 12:34 Impression: Primary Impression: Complete heart block Additional Impression: Generalized weakness Disposition: ADMITTED INPATIENT Admit to: Tele Condition: Guarded Discharged With: Self Heart Score Heart Score: Heart Score Response (Comments) Value History Moderate Suspicious 1 EKG Normal 0 Age >65 2 Risk Factors 1 or 2 risk factors 1 Troponin 1-2 x's Normal limit 1 Total 5 I personally scribed for DEBI ROWE DO ([email or web address]) on 04/25/24 at 12:33. Electronically submitted by Florecita Whiteside ([email or web address]). I personally scribed for DEBI ROWE DO ([email or web address]) on 04/25/24 at 13:33. Electronically submitted by Florecita Whiteside ([email or web address]). I personally scribed for DEBI ROWE DO ([email or web address]) on 04/25/24 at 14:30. Electronically submitted by Florecita Whiteside ([email or web address]). I personally scribed for DEBI ROWE DO ([email or web address]) on 04/25/24 at 22:39. Electronically submitted by Florecita Whiteside ([email or web address]). DEBI ROWE DO Apr 25, 2024 12:33
[2024-04-25] MEDS: GLUCAGON EMERG KIT 1mg/1ml IV ONE (13:00)
[2024-04-25] MEDS: ONDANSETRON HCL 4 MG/2 ML VIAL IV ONE (13:00)
--- NOTE | 2024-04-25 13:10 | DVHINCON2 ---
Date Seen: Apr 25, 2024 Referring Physician MD Roberto Reason for Consultation Complete heart block History of Present Illness This is an 88-year-old female who presented to the emergency room via EMS with a chief complaint of generalized weakness. The patient has a history of Alzheimer's dementia and is a very poor historian. Information obtained from paramedics and family over the phone. It appears the patient developed generalized weakness associated with hallucinations, tremors, dizziness, nausea, diarrhea, and palpitations since yesterday and worsening today prompting family to call 911. They also complained of foul-odor/cloudy urine. Upon EMS evaluation she was found with a third-degree atrioventricular block and medicated with atropine 1 mg IV x1 without any changes in heart rate/rhythm. Upon arrival to the emergency room when she underwent a subsequent 12 lead electrocardiogram revealing a complete heart block with associated ST segment depression to lead I and aVL. Per family, patient takes Lopressor 50 mg on daily basis with latest intake earlier today. She was seen by Dr. Greene on 2023 when she was recently diagnosed with atrial fibrillation undergoing a Holter monitor with recommendations for a BB and Plavix therapy. Other medical history includes congestive heart failure, biventricular heart failure, hypertension, dyslipidemia, chronic kidney disease, and Alzheimer's dementia. Past Medical History Past medical history reviewed. No other significant than mentioned above. Past Surgical History Appendectomy Cholecystectomy Left hip Family History: Alzheimer's disease G8 MOTHER Cerebrovascular accident (CVA) G8 FATHER Hypertension G8 MOTHER Family History Family history reviewed. Not significant for cardiovascular disease. Social History Denies the use of illicit drugs, alcohol, or tobacco use. Allergies: Coded Allergies: NO KNOWN ALLERGIES (Unverified , 08/11/09) Home Meds Active Scripts Doxycycline (Monohydrate) (Doxycycline) 100 Mg Cap, 100 MG PO BID, #10 CAP Prov:MATIAS LOPEZ MD 04/20/23 Metoprolol Tartrate (Lopressor) 25 Mg Tb, 50 MG PO BID, #120 TAB Take 2 tablets (50 mg) twice a day. Hold for heart rate below 60. Prov:MATIAS LOPEZ MD 04/20/23 Clopidogrel Bisulfate (Plavix) 75 Mg Tab, 1 TAB PO DAILY, #30 TAB Prov:MATIAS LOPEZ MD 04/20/23 Home Meds Home medications reviewed. Review of Systems Constitutional: Generalized weakness Ears, Nose, & Throat: No symptom reported Eyes: No symptom reported Neurological: Dizziness, tremors Pulmonary/Respiratory: No symptom reported Cardiovascular: Palpitations Gastrointestinal: No symptom reported Genitourinary: No symptom reported Musculoskeletal: No symptom reported Skin: No symptom reported Psychiatric: No symptom reported Endocrine: No symptom reported Hemotologic/Lymphatic: No symptom reported Vital Signs Vital Signs Date Time Temp Pulse Resp B/P (MAP) Pulse Ox O2 Delivery O2 Flow Rate FiO2 04/25/24 12:32 97.7 47 18 174/60 (98) 95 Physical Exam General Appearance: Cooperative. Well developed. Well nourished. In no acute distress Head Exam: Normal inspection Neck Exam: Normal inspection. Non-tender. Normal alignment Pulmonary/Respiratory: Chest non-tender. Clear bilateral breath sounds Cardiovascular/Chest: Regular rate and rhythm. S1, S2. Complete heart block. No murmurs. No JVD. Peripheral Pulses: 2+ Radial (R). 2+ Radial (L). 2+ Pedal (R). 2+ Pedal (L) Abdominal Exam: Normal bowel sounds. Soft. Nontender. No hepatospenomegaly. No masses Ankle Exam: Negative ankle edema Lower extremities: Negative lower extremity edema Neuro/Mental Status: A&O x2. Alert but confused Thoughts/Psych: Normal thought pattern. Appropriate mood and affect. Pleasant Appearance: In no acute distress Skin Exam: Normal inspection. Normal color. Warm. Dry Assessment Complete heart block, ?BB induced Acute on chronic decompensated HFrEF, NYHA Class II Unspecified atrial fibrillation, on metoprolol/Plavix Hypertensive urgency Dyslipidemia Alzheimer's dementia Rule out acute UTI Plan/Recommendation (Dr. Toscano) STAT consultation for a patient who presented with a complete heart block. She is clinically stable at this time. Given Lopressor 50 mg q.d. therapy, we agree with glucagon administration and closely monitoring overnight. In the setting o f continuous high-degree atrioventricular block upon reassessment, the patient may qualify for an automatic implantable cardioverter defibrillator per primary middle school history teacher discretion Dr. Greene. In the meantime, avoid AV beverly blocking agents. In the setting of symptomatic bradycardia, initiate TC pacing and atropine therapy as necessary. Dopamine drip contraindicated at this time given hypertensive urgency. Monitor ECG changes closely. The patient will be referred back to primary middle school history teacher. Blood work pending at this time. Thank you for allowing us to participate in this patient's care. Please call if you have any questions or concerns. Critical care time: 50 min. This medical document was created using an electronic medical record system with voice recognition software and computerized dictation system. Although this document has been carefully reviewed, there might still be some phonetic and typographical errors. Occasional wrong-word or ``sound-alike substitutions may have occurred due to the inherent limitations of voice recognition software. These areas are purely typographical due to imperfections of the software programs and do not reflect any compromise in the patient's medical care. Please read the chart carefully and recognize, using context, where these substitutions have occurred. Plan discussed with: Patient, Daughter, Other Date of Service: Apr 25, 2024 Billing Provider: CHENCHO TOSCANO MD Cardiology Common Codes: 71594-[id number] CARE 30-74 MIN MANJULA DOLL [facility] Apr 25, 2024 13:10
--- NOTE | 2024-04-25 13:27 | DVH ---
CHEST RADIOGRAPH Indication: weak/dizzy Technique: Single frontal view of the chest was obtained COMPARISON: XY CHEST PORTABLE on DOS: 04/17/23, CHEST PORTABLE on DOS: 09/16/19 FINDINGS: Lines and Tubes: None Lungs: Congestion Pleura: No effusion. No pneumothorax. Cardiomediastinal contours: Cardiomegaly Bones: Unremarkable IMPRESSION: Mild congestion Cardiomegaly.
[2024-04-25 13:33] LABS: Basophils # (auto) 0 10 ^3/uL (0-0.2); Basophils % (auto) 0.5 % (0.0-2.0); Eosinophils # (auto) 0 10 ^3/uL (0-0.8); Eosinophils % (auto) 0.4 % (0.0-7.0); Hematocrit 39.9 % (36.0-46.0); Hemoglobin 13.3 g/dL (12.2-16.2); Lymphocytes # (auto) 0.8 10 ^3/uL (0.4-5.4); Lymphocytes % (auto) 16.3 % (10.0-50.0); Mean Corpuscular Hemoglobin 32.6 pg (28.0-32.0); Mean Corpuscular Hgb Conc. 33.4 g/dL (32.0-36.0); Mean Corpuscular Volume 97.7 fL (80.0-100.0); Monocytes # (auto) 0.5 10 ^3/uL (0-1.3); Monocytes % (auto) 9.2 % (0.0-12.0); Neutrophils # (auto) 3.7 10 ^3/uL (1.6-8.6); Neutrophils % (auto) 73.6 % (37.0-80.0); Platelet Count (auto) 169 10^3/uL (140-450); Red Blood Cells 4.09 10^6/uL (4.0-5.20); Red Cell Distribution Width 13.9 % (11.8-14.3)
[2024-04-25] MEDS: SODIUM CHLORIDE 0.9% 1,000 ML IV ONE (13:39)
[2024-04-25] MEDS ORDERED: hydrALAZINE HCL 20 MG/ML VL IV PRN (13:45)
[2024-04-25 13:59] LABS: INR 1.05 (0.9-1.15); Partial Thromboplastin Time 28.2 SEC (24.5-34.5); Prothrombin Time 11.1 sec (9.3-11.8)
[2024-04-25 14:09] LABS: Alanine Aminotransferase 14 U/L (7-40); Alkaline Phosphatase 78 U/L (46-116); Anion Gap 8 (5-15); Aspartate Aminotransferase 17 U/L (13-40); BUN/Creatinine Ratio 29.9 (10.0-20.0); Calcium 9.7 mg/dL (8.7-10.4); Carbon Dioxide 30 mmol/L (20-31); Chloride 103 mmol/L (98-107); Potassium 4.1 mmol/L (3.5-5.1); Sodium 141 mmol/L (136-145)
[2024-04-25 14:22] LABS: Bilirubin, Total 1.4 mg/dL (0.2-1.0); Blood Urea Nitrogen 38 mg/dL (9-23); Glucose 115 mg/dL (74-106)
[2024-04-25] MEDS: hydrALAZINE HCL 20 MG/ML VL IV ONE (14:35)
[2024-04-25 14:48] LABS: Magnesium 2.4 mg/dL (1.6-2.6)
[2024-04-25 14:56] VITALS: PULSE 44; RESP 13; O2SAT 99
[2024-04-25] MEDS ORDERED: NITROGLYCERIN 0.4 MG SL TAB SL PRN (16:30)
[2024-04-25] MEDS ORDERED: ACETAMINOPHEN 325 MG TAB PO PRN (16:30)
[2024-04-25] MEDS ORDERED: MORPHINE SULFATE INJ 2 MG/ml SYRG IV PRN ×2 (16:30)
[2024-04-25] MEDS ORDERED: ONDANSETRON HCL 4 MG/2 ML VIAL IV PRN (16:30)
--- NOTE | 2024-04-25 16:51 | DVHHP2 ---
History of Present Illness Reason for Visit: Brought in by paramedics with dizziness and palpitations History of Present Illness 88-year-old female with a known history of congestive heart failure unspecified, hypertension, CKD, Alzheimer dementia, recent diagnosis of AFib was on beta linda and Plavix brought in by paramedics with dizziness and palpitation found to have complete heart block. Patient was bradycardic EN route in 40s received one dose of atropine IV x1. Currently patient was seen when evaluated by on- call Cardiology in the ER and no intervention for now. Use atropine p.r.n. bradycardia less than 40. Patient has Alzheimer dementia most of the history obtained from the chart. Cardiovascular: AFIB, CHF, HTN PIN STICKER: Dementia Past Surgical History: Appendectomy, Total hip replacement Family History: None ALCOHOL: none Drugs: None Review of Systems Review of Systems 12 review of system can not be obtained as patient is has Alzheimer dementia, Allergies: Coded Allergies: NO KNOWN ALLERGIES (Unverified , 08/11/09) Medications Current Medications Medications Dose Ordered Sig/[place] Route Start Time Stop Time Status Last Admin Dose Admin Hydralazine HCl 10 mg Q6HP PRN IV 04/25/24 13:45 Exam Vital Signs Vital Signs Date Time Temp Pulse Resp B/P (MAP) Pulse Ox O2 Delivery O2 Flow Rate FiO2 04/25/24 15:33 42 04/25/24 15:30 98.4 10 160/44 (82) 98 98.4 04/25/24 14:56 Room Air* 0 21 Exam HEENT pupils are reactive Neck is supple CV is S1-S2 regular rhythm positive bradycardia in 40/43 Respiratory bilateral diminished breath sounds at bases GI positive bowel sound Extremity no edema PIN STICKER patient is moving all four extremities. Labs/Xrays Labs Test 04/25/24 16:26 04/25/24 13:15 Range/Units White Blood Count 5.0 4.4-10.8 10^3/uL Red Blood Count 4.09 4.0-5.20 10^6/uL Hemoglobin 13.3 12.2-16.2 g/dL Hematocrit 39.9 36.0-46.0 % Mean Corpuscular Volume 97.7 80.0-100.0 fL Mean Corpuscular Hemoglobin 32.6 H 28.0-32.0 pg Mean Corpuscular Hemoglobin Concent 33.4 32.0-36.0 g/dL Red Cell Distribution Width 13.9 11.8-14.3 % Platelet Count 169 140-450 10^3/uL Mean Platelet Volume 9.5 6.9-10.8 fL Neutrophils (%) (Auto) 73.6 37.0-80.0 % Lymphocytes (%) (Auto) 16.3 10.0-50.0 % Monocytes (%) (Auto) 9.2 0.0-12.0 % Eosinophils (%) (Auto) 0.4 0.0-7.0 % Basophils (%) (Auto) 0.5 0.0-2.0 % Neutrophils # (Auto) 3.7 1.6-8.6 10 ^3/uL Lymphocytes # (Auto) 0.8 0.4-5.4 10 ^3/uL Monocytes # (Auto) 0.5 0-1.3 10 ^3/uL Eosinophils # (Auto) 0 0-0.8 10 ^3/uL Basophils # (Auto) 0 0-0.2 10 ^3/uL Nucleated Red Blood Cells 0.0 % Prothrombin Time 11.1 9.3-11.8 sec Prothrombin Time INR 1.05 0.9-1.15 Activated Partial Thromboplast Time 28.2 24.5-34.5 SEC Sodium Level 141 136-145 mmol/L Potassium Level 4.1 3.5-5.1 mmol/L Chloride Level 103 98-107 mmol/L Carbon Dioxide Level 30 20-31 mmol/L Anion Gap 8 5-15 Blood Urea Nitrogen 38 H 9-23 mg/dL Creatinine 1.27 H 0.550-1.02 mg/dL Glomerular Filtration Rate Calc 41 >90 mL/min BUN/Creatinine Ratio 29.9 H 10.0-20.0 Serum Glucose 115 H 74-106 mg/dL Hemoglobin A1c 5.8 H <5.7 % A1C Lactic Acid Level 1.7 0.4-2.0 mmol/L Calcium Level 9.7 8.7-10.4 mg/dL Magnesium Level 2.4 1.6-2.6 mg/dL Total Bilirubin 1.4 H 0.2-1.0 mg/dL Aspartate Amino Transferase (AST) 17 13-40 U/L Alanine Aminotransferase (ALT) 14 7-40 U/L Alkaline Phosphatase 78 46-116 U/L B-Type Natriuretic Peptide > 5000.00 0-100 pg/mL Total Protein 7.0 5.7-8.2 g/dL Albumin 4.0 3.2-4.8 g/dL Triglycerides Level 56 < 150 mg/dL Cholesterol Level 156 < 200 mg/dL LDL Cholesterol 67 < 100 mg/dL HDL Cholesterol 81 H 40-59 mg/dL Thyroid Stimulating Hormone (TSH) 2.25 0.55-4.78 uIU/mL Assessment/Plan Assessment/Plan 88-year-old female with a known history of congestive heart failure unspecified, recent diagnosis of AFib currently on beta linda and Plavix, Alzheimer dementia brought in by paramedics with a dizziness and palpitation found to have 1. Acute symptomatic bradycardia/complete heart block 2. Paroxysmal AFib 3. Hypertensive urgency 4. Congestive heart failure unspecified 5. Elevated troponin 6. Alzheimer dementia -admitted to [facility], IV fluids, 2D echo cardiology consultation for any intervention -atropine 1 mg IV p.r.n. heart rate less than 40 and symptomatic bradycardia. -correctional food service supervisor's recommendations noted. Plan discussed with: Other My Orders Orders - LUZ ELENA FONG MD Procedure Category Date Status Time Admit ADMIT 04/25/24 Transmitted 16:30 Code Status CODE 04/25/24 Transmitted 16:30 2 Gm Sodium Diet DIET 04/25/24 Transmitted Dinner Sodium Chloride 0.9% [facility] 04/25/24 Logged 16:30 Condition: Critical [facility] 04/25/24 Transmitted 16:30 Acetaminophen Tablet [facility] 04/25/24 Logged (Tylenol Tablet) 16:30 Morphine Sulfate [facility] 04/25/24 Logged Injection 16:30 Nitroglycerin [facility] 04/25/24 Transmitted Sublingual (Ntrostat 16:30 Morphine Sulfate [facility] 04/25/24 Transmitted Injection 16:30 Stat Ekg For Chest [facility] 04/25/24 Transmitted Pain 16:30 Notify Md Of Changes [facility] 04/25/24 Transmitted From Base 16:30 Coat Finisher For [facility] 04/25/24 Transmitted 24 Hours 16:30 Emergency Dysrhythmia [facility] 04/25/24 Transmitted Protocol 16:30 Rhythm Strips Once [facility] 04/25/24 Transmitted Every Shift 16:30 Oxygen By Nasal RT 04/25/24 Transmitted Cannula 16:30 Communication Order ORDERS 04/25/24 Transmitted 16:30 Hydrocodone-Acet [facility] 04/25/24 Logged 5/325mg Tab ([place] 16:30 Ondansetron Hcl PHA 04/25/24 Logged (Zofran) 16:30 Enoxaparin Sodium [facility] 04/26/24 Logged (Lovenox) 10:00 Date of Service: Apr 25, 2024 Billing Provider: LUZ ELENA FONG MD Common Visit Codes: NOT BILLABLE LUZ ELENA FONG MD Apr 25, 2024 16:51
[2024-04-25] MEDS: SODIUM CHLORIDE 0.9% 1,000 ML IV SCH (18:24)
[2024-04-25] MEDS: ATROPINE SULF 1 MG/10ml SYR IV PRN (20:25)
[2024-04-25 20:30] VITALS: PULSE 38; RESP 20; O2SAT 99
[2024-04-26] MEDS: DOPamine 1600MCG/ML D5W 250 ML IV SCH (00:20)
[2024-04-26 05:47] LABS: Urine Bacteria None Seen /hpf (None Seen)
[2024-04-26 05:55] LABS: Urine Blood Negative /uL (Negative); Urine Clarity Turbid (Clear); Urine Color Yellow (Yellow); Urine Mucus FEW (None Seen); Urine Protein, UAD 1+ (Negative); Urine Specific Gravity 1.024 (1.001-1.035); Urine Squamous Epithelial Cell FEW /hpf (<5); Urine Urobilinogen 3 mg/dL (Negative); Urine WBC 11 /hpf (0 - 5)
[2024-04-26 07:30] VITALS: PULSE 40; RESP 15; O2SAT 96
[2024-04-26] MEDS: ENOXAPARIN SOD 30 MG/0.3 ML SYRINGE SC SCH (10:10)
--- NOTE | 2024-04-26 15:28 | DVHPN2 ---
Subjective 88-year-old female with a known history of congestive heart failure unspecified, recent diagnosis of AFib currently on beta linda and Plavix, Alzheimer dementia brought in by paramedics with a dizziness and palpitation found to have 1. Acute symptomatic bradycardia/complete heart block 2. Paroxysmal AFib 3. Hypertension controlled 4. Congestive heart failure unspecified 5. Elevated troponin 6. Alzheimer dementia -continue dopamine , follow up Cardiology recommendation, atropine p.r.n. Reviewed: Care Plan Changes from previous H/P or p: No Changes Objective Vitals Vital Signs Date Time Temp Pulse Resp B/P (MAP) Pulse Ox O2 Delivery O2 Flow Rate FiO2 04/26/24 14:30 48 20 138/33 (68) 96 04/26/24 07:30 Nasal Cannula* 2 28 04/26/24 07:30 98.0 98.0 Intake/Output Intake and Output 04/26/24 07:00 Intake Total 1806.550 ml Balance 1806.550 ml Intake IV Total 1806.550 ml Medications Current Medications Medications Dose Ordered Sig/[place] Route Start Time Stop Time Status Last Admin Dose Admin Hydralazine HCl 10 mg Q6HP PRN IV 04/25/24 13:45 Sodium Chloride 1,000 ml @ 60 mls/hr [id number] IV 04/25/24 16:30 04/26/24 10:10 60 MLS/HR Acetaminophen/ Hydrocodone Bitart 1 tab Q4HP PRN PO 04/25/24 16:30 Ondansetron HCl 4 mg Q4HP PRN IV 04/25/24 16:30 Enoxaparin Sodium 30 mg DAILY SC 04/26/24 10:00 04/26/24 10:10 30 MG Acetaminophen 650 mg Q6HP PRN PO 04/25/24 16:30 Morphine Sulfate 2 mg Q4HPRN PRN IV 04/25/24 16:30 Nitroglycerin 0.4 mg Q5MINP PRN SL 04/25/24 16:30 Morphine Sulfate 2 mg Q30M PRN IV 04/25/24 16:30 Atropine Sulfate 1 mg Q4HPRN PRN IV 04/25/24 20:00 04/25/24 20:25 1 MG Dopamine HCl/ Dextrose 250 ml @ 4.425 mls/ hr Q24H IV 04/26/24 00:15 04/26/24 00:20 4.425 MLS/HR Norepinephrine Bitartrate 250 ml @ 3.75 mls/hr Q24H IV 04/26/24 08:30 Laboratory Results Laboratory Tests 04/25/24 13:15 Urinalysis Test 04/26/24 03:27 Urine Color Yellow (Yellow) Urine Clarity Turbid (Clear) H Urine pH 5.0 (5.0-9.0) Urine Specific [place] 1.024 (1.001-1.035) Urine Protein 1+ (Negative) H Urine Ketones Negative (Negative) Urine Blood Negative /uL (Negative) Urine Nitrite Negative (Negative) Urine Bilirubin Negative (Negative) Urine Urobilinogen 3 mg/dL (Negative) H Urine Leukocyte Esterase 1+ /uL (Negative) Urine RBC 15 /hpf (0 - 4) Urine WBC 11 /hpf (0 - 5) Urine Squamous Epithelial Cells Few /hpf (<5) Urine Bacteria None seen /hpf (None Seen) Urine Mucus Few (None Seen) Urine Glucose Normal mg/dL (Normal) Assessment/Plan Assessment/Plan 88-year-old female with a known history of congestive heart failure unspecified, recent diagnosis of AFib currently on beta linda and Plavix, Alzheimer dementia brought in by paramedics with a dizziness and palpitation found to have 1. Acute symptomatic bradycardia/complete heart block 2. Paroxysmal AFib 3. Hypertensive urgency 4. Congestive heart failure unspecified 5. Elevated troponin 6. Alzheimer dementia -admitted to [facility], IV fluids, 2D echo cardiology consultation for any intervention -atropine 1 mg IV p.r.n. heart rate less than 40 and symptomatic bradycardia. -punch out crew member's recommendations noted. Plan discussed with: Patient, Other My Orders Orders - LUZ ELENA FONG MD Procedure Category Date Status Time Admit ADMIT 04/25/24 Transmitted 16:30 Code Status CODE 04/25/24 Transmitted 16:30 2 Gm Sodium Diet DIET 04/25/24 Transmitted Dinner Sodium Chloride 0.9% PHA 04/25/24 In Process 16:30 Condition: Critical KAY 04/25/24 In Process 16:30 Acetaminophen Tablet PHA 04/25/24 In Process (Tylenol Tablet) 16:30 Morphine Sulfate PHA 04/25/24 In Process Injection 16:30 Nitroglycerin PHA 04/25/24 In Process Sublingual (Ntrostat 16:30 Morphine Sulfate PHA 04/25/24 In Process Injection 16:30 Stat Ekg For Chest KAY 04/25/24 In Process Pain 16:30 Notify Of Changes KAY 04/25/24 In Process From Base 16:30 Take Down Inspector For KAY 04/25/24 In Process 24 Hours 16:30 Emergency Dysrhythmia KAY 04/25/24 In Process Protocol 16:30 Rhythm Strips Once KAY 04/25/24 In Process Every Shift 16:30 Oxygen By Nasal RT 04/25/24 Transmitted Cannula 16:30 Communication Order ORDERS 04/25/24 Transmitted 16:30 Hydrocodone-Acet PHA 04/25/24 In Process 5/325mg Tab (Loving 16:30 Ondansetron Hcl PHA 04/25/24 In Process (Zofran) 16:30 Enoxaparin Sodium PHA 04/26/24 In Process (Lovenox) 10:00 Norepinephrine 8 PHA 04/26/24 In Process Mg/250ml Kit 08:30 Communication Order ORDERS 04/26/24 Transmitted 10:20 Communication Order ORDERS 04/26/24 Transmitted 10:22 Date of Service: Apr 26, 2024 Billing Provider: LUZ ELENA FONG MD Common Visit Codes: NOT BILLABLE LUZ ELENA FONG MD Apr 26, 2024 15:28
[2024-04-26 21:00] VITALS: PULSE 46; RESP 20; O2SAT 98
[2024-04-27] VITALS (25 sets, daily range): BP systolic 119–209; BP diastolic 31–83; PULSE 39–90; RESP 15–20; TEMP 97.5–98.9; O2SAT 93–98
--- NOTE | 2024-04-27 07:13 | ECG ---
[facility] Test Date: 2024-04-25 Test Time: 13:41:35 Pat Name: HEMANT ROSS Department: ER Room: [address] [place] [address] Gender: F Environmental Field Technician: CATHY : 1935 Requested By: DEBI ROWE Order Number: [id number] Reading MD: Measurements Intervals [place] Rate: 48 P: 267 NV: 576 QRS: -37 QRSD: 119 T: 80 QT: 647 QTc: 579 Interpretive Statements Sinus or ectopic atrial bradycardia Prolonged NV interval Nonspecific IVCD with LAD Nonspecific T abnrm, anterolateral leads Please click the below link to view image of tracing.
--- NOTE | 2024-04-27 07:25 | ECG ---
[facility] Test Date: 2024-04-25 Test Time: 12:17:27 Pat Name: HEMANT ROSS Department: ED Room: [address] [place] [address] Gender: F Bi Tester: MATT : 1935 Requested By: DEBI ROWE Order Number: [id number] Reading MD: Measurements Intervals [place] Rate: 45 P: 0 [place]: 0 QRS: -46 QRSD: 122 T: 110 QT: 673 QTc: 583 Interpretive Statements AV block, complete (third degree) LVH w/ repol abnormalities, possible ischemia ST elevation, consider inferior injury Prolonged QT interval Please click the below link to view image of tracing.
[2024-04-27 08:01] LABS: Basophils # (auto) 0 10 ^3/uL (0-0.2); Basophils % (auto) 0.5 % (0.0-2.0); Eosinophils # (auto) 0 10 ^3/uL (0-0.8); Eosinophils % (auto) 0.3 % (0.0-7.0); Hematocrit 36.3 % (36.0-46.0); Lymphocytes # (auto) 0.6 10 ^3/uL (0.4-5.4); Lymphocytes % (auto) 10.9 % (10.0-50.0); Mean Corpuscular Hemoglobin 32.7 pg (28.0-32.0); Mean Corpuscular Hgb Conc. 33.1 g/dL (32.0-36.0); Mean Corpuscular Volume 98.8 fL (80.0-100.0); Monocytes # (auto) 0.7 10 ^3/uL (0-1.3); Monocytes % (auto) 13.3 % (0.0-12.0); Nucleated Red Blood Cells % 0.1 %; Platelet Count (auto) 133 10^3/uL (140-450); Red Blood Cells 3.67 10^6/uL (4.0-5.20); Red Cell Distribution Width 14.3 % (11.8-14.3); White Blood Cell 5.4 10^3/uL (4.4-10.8)
[2024-04-27 08:19] LABS: Alanine Aminotransferase 12 U/L (7-40); Albumin 3.7 g/dL (3.2-4.8); Alkaline Phosphatase 67 U/L (46-116); Anion Gap 7 (5-15); Aspartate Aminotransferase 19 U/L (13-40); BUN/Creatinine Ratio 29.2 (10.0-20.0); Calcium 9.1 mg/dL (8.7-10.4); Carbon Dioxide 25 mmol/L (20-31); Glucose 100 mg/dL (74-106); Magnesium 2.3 mg/dL (1.6-2.6); Potassium 4.2 mmol/L (3.5-5.1)
[2024-04-27 08:20] LABS: Total Protein 6.9 g/dL (5.7-8.2)
[2024-04-27 08:24] LABS: Bilirubin, Total 1.5 mg/dL (0.2-1.0); Blood Urea Nitrogen 31 mg/dL (9-23); Chloride 114 mmol/L (98-107); Sodium 146 mmol/L (136-145)
[2024-04-27] MEDS: NOREPINEPHRINE 8 MG/250ML KIT 250 ML IV SCH (08:30)
--- NOTE | 2024-04-27 17:12 | DVHPN2 ---
Subjective 88-year-old female with a known history of congestive heart failure unspecified, recent diagnosis of AFib currently on beta linda and Plavix, Alzheimer dementia brought in by paramedics with a dizziness and palpitation found to have complete heart block and symptomatic bradycardia. Patient's does not follow up planned currently being scheduled for permanent pacemaker placement tonight. Reviewed: Care Plan Changes from previous H/P or p: No Changes Objective Vitals Vital Signs Date Time Temp Pulse Resp B/P (MAP) Pulse Ox O2 Delivery O2 Flow Rate FiO2 04/27/24 16:15 42 04/27/24 16:00 98.2 18 133/50 (77) 98.2 04/27/24 07:00 98 04/26/24 21:00 Room Air* 0 21 Intake/Output Intake and Output 04/27/24 07:00 Intake Total 1224.075 ml Balance 1224.075 ml Intake IV Total 1224.075 ml Exam HEENT pupils are reactive Neck is supple CV is S1-S2 regular rhythm positive bradycardia into 40s Respiratory diminished breath sounds bases GI positive bowel sound Extremity no edema LOGISTICS PLANNING ENGINEER minimally following commands Medications Current Medications Medications Dose Ordered Sig/[place] Route Start Time Stop Time Status Last Admin Dose Admin Hydralazine HCl 10 mg Q6HP PRN IV 04/25/24 13:45 Sodium Chloride 1,000 ml @ 60 mls/hr [id number] IV 04/25/24 16:30 04/27/24 16:50 60 MLS/HR Acetaminophen/ Hydrocodone Bitart 1 tab Q4HP PRN PO 04/25/24 16:30 Ondansetron HCl 4 mg Q4HP PRN IV 04/25/24 16:30 Enoxaparin Sodium 30 mg DAILY SC 04/26/24 10:00 04/27/24 10:25 30 MG Acetaminophen 650 mg Q6HP PRN PO 04/25/24 16:30 Morphine Sulfate 2 mg Q4HPRN PRN IV 04/25/24 16:30 Nitroglycerin 0.4 mg Q5MINP PRN SL 04/25/24 16:30 Morphine Sulfate 2 mg Q30M PRN IV 04/25/24 16:30 Atropine Sulfate 1 mg Q4HPRN PRN IV 04/25/24 20:00 04/25/24 20:25 1 MG Dopamine HCl/ Dextrose 250 ml @ 4.425 mls/ hr Q24H IV 04/26/24 00:15 04/26/24 00:20 4.425 MLS/HR Norepinephrine Bitartrate 250 ml @ 3.75 mls/hr Q24H IV 04/26/24 08:30 Laboratory Results Laboratory Tests 04/27/24 07:50 Chemistry Test 04/27/24 07:50 Albumin 3.7 g/dL (3.2-4.8) Calcium Level 9.1 mg/dL (8.7-10.4) Magnesium Level 2.3 mg/dL (1.6-2.6) Total Protein 6.9 g/dL (5.7-8.2) LFT Test 04/27/24 07:50 Alanine Aminotransferase (ALT) 12 U/L (7-40) Alkaline Phosphatase 67 U/L (46-116) Aspartate Amino Transferase (AST) 19 U/L (13-40) Total Bilirubin 1.5 mg/dL (0.2-1.0) H Urinalysis Test 04/26/24 03:27 Urine Color Yellow (Yellow) Urine Clarity Turbid (Clear) H Urine pH 5.0 (5.0-9.0) Urine Specific [place] 1.024 (1.001-1.035) Urine Protein 1+ (Negative) H Urine Ketones Negative (Negative) Urine Blood Negative /uL (Negative) Urine Nitrite Negative (Negative) Urine Bilirubin Negative (Negative) Urine Urobilinogen 3 mg/dL (Negative) H Urine Leukocyte Esterase 1+ /uL (Negative) Urine RBC 15 /hpf (0 - 4) Urine WBC 11 /hpf (0 - 5) Urine Squamous Epithelial Cells Few /hpf (<5) Urine Bacteria None seen /hpf (None Seen) Urine Mucus Few (None Seen) Urine Glucose Normal mg/dL (Normal) Assessment/Plan Assessment/Plan 88-year-old female with a known history of congestive heart failure unspecified, recent diagnosis of AFib currently on beta linda and Plavix, Alzheimer dementia brought in by paramedics with a dizziness and palpitation found to have 1. Acute symptomatic bradycardia/complete heart block 2. Paroxysmal AFib 3. Hypertensive urgency 4. Congestive heart failure unspecified 5. Elevated troponin 6. Alzheimer dementia -dopamine drip IV fluids, 2D echo cardiology consultation for any intervention -atropine 1 mg IV p.r.n. heart rate less than 40 and symptomatic bradycardia. -flower planter's recommendations noted -patient is going for permanent pacemaker placement with Dr. Gretel Galvan today.. Plan discussed with: Other Date of Service: Apr 27, 2024 Billing Provider: LUZ ELENA FONG MD Common Visit Codes: NOT BILLABLE LUZ ELENA FONG MD Apr 27, 2024 17:12
[2024-04-27] MEDS: VANCOMYCIN HCL 1000 MG VL ONE ×2 (18:41→20:41)
[2024-04-27] MEDS: VANCOMYCIN 1GM/250ML KIT 250 ML IV ONE (18:41)
[2024-04-27] MEDS: LIDOCAINE 2%HCL (LOCAL ANESTH.) INJ 20ML MDV ONE (18:41)
[2024-04-27] MEDS: MIDAZOLAM HCL 2MG/2ML 2ml VIAL (1mg/ml) ONE ×2 (18:48→20:35)
[2024-04-27] MEDS: fentaNYL CITRATE 100 MCG/2 ML VL ONE (18:48)
[2024-04-27] MEDS: hydrALAZINE HCL 20 MG/ML VL ONE (19:16)
[2024-04-27] MEDS: IODIXANOL 320MG/ML 100ML BTL IV ONE (19:33)
[2024-04-27] MEDS: hydrALAZINE HCL 20 MG/ML VL IV PRN (22:04)
--- NOTE | 2024-04-27 22:54 | DVH ---
CHEST RADIOGRAPH Indication: S/P pacemaker Technique: Single frontal view of the chest was obtained Comparison: XY CHEST PORTABLE on DOS: 04/25/24, XY CHEST PORTABLE on DOS: 04/17/23, CHEST PORTABLE on D OS: 09/16/19 FINDINGS: Lines and Tubes: Dual-chamber pacemaker is in place with pulse generator over the left chest. There i s no pneumothorax seen. Lungs: No focal consolidation. Pleura: No effusion. No pneumothorax. Cardiomediastinal contours: Unremarkable Bones: No acute osseous abnormality. IMPRESSION: 1. Interval placement of a dual-chamber pacemaker with pulse generator over the left chest. 2. No pneumothorax. HS:Y
[2024-04-27] MEDS: METOPROLOL TARTRATE 25 MG TAB PO SCH (22:55)
--- NOTE | 2024-04-27 23:39 | DVHOP ---
DATE OF SURGERY: 04/27/2024 TECHNIQUE PERFORMED: * Emergency case. * Left subclavian venography. * Management of conscious sedation. * Implantation of a dual-chamber permanent pacemaker from left subclavian region (Biotronik device and MRI proof). * Fluoroscopic guidance and supervision. * Interrogation of device. COMPLICATIONS: None. ASSISTANTS: Assisted by our staff over here are Moni Jane, and [place]. INDICATIONS: As follows, the patient with complete heart block, heart rate dropping down to 30 with symptoms of dizziness, syncopal episode. DESCRIPTION OF PROCEDURE: Risks, benefits all have been explained, and the informed consent was obtained. In a standard manner, the patient was urgently brought on Sunday in the laboratory administrative director. The patient's left subclavian area thoroughly cleaned with soap and Betadine. Lidocaine was given. IV Versed and fentanyl were given and venography was done. Left subclavian line was obtained with the help of a micropuncture needle. Subsequently, a wire was passed, needle was removed, and subsequently we have put a micropuncture sheath. Subsequently, the regular wire was passed. A micropuncture sheath was then removed. Lidocaine was given and an incision was made semi-horizontally. Subcutaneous pocket was made. Bleeding sites all have been cauterized and sutured. Subsequently, we put 8-Ethiopian venous sheath. Dilator had been removed. Ventricular lead was passed, ventricle, screwed in very well. Subsequently, we also put in a 6-[place]iopian venous sheath and atrial lead was passed, and subsequently, both atrial and ventricular leads were individually sutured with the help of the Ethibond. We also put a pulse generator that screwed in very well. Subsequently, we went into the deep subpectoralis groove and we also have put a pacemaker over there and subsequently we also put the thrombin solution. The vancomycin powder was applied. Subsequently, with the help of the 2-0 Vicryl, followed by 3-0, followed by 4-0 Monocryl, the whole wound have been very well sutured. We also put a Dermabond and we proceeded Steri-Strip, Telfa, Op-Site. Procedure went well. There were no complications. Proceeded under fluoroscopy and we are following report available. Atrial lead the P wave is 1.3, capture 0.8, impedance 140. The patient's right ventricular lead R-wave 10.5, capture 1.2, impedance 819. Procedure went well and there was no complication. PLAN OF ACTION: Advised for a chest x-ray and antibiotics. She will see me back in the office after few weeks to remove the dressing. Denny Galvan MD [id number] TID: [id number] RECEIPT: [id number] MTDD
--- NOTE | 2024-04-27 23:54 | DVHINCON2 ---
Date of service: Apr 27, 2024 Referring Physician Ramona Reason for Consultation Symptomatic bradycardia on Dopamine GTT, patient needs pacemaker placed History of Present Illness This is an 88-year-old female with a PMH of HTN who was brought in by ambulance on 04/25 with complaints of dizziness and weakness since 04/23. Per chest review, EMS they found the patients heart rate to be in the 40s. Patient took her morning metoprolol. Patient is currently on Plavix. Patient was given 1 mg of atropine in route without any significant changes. On arrival patient blood pressure was in the 180s systolically. EMS reports that her blood pressure was in the 200s at home. Incidentally patient when asked she said that her stools were black. Chest x-ray shows mild congestion and cardiomegaly. Patient has symptomatic bradycardia on Dopamine GTT. Family History: Alzheimer's disease G8 MOTHER Cerebrovascular accident (CVA) G8 FATHER Hypertension G8 MOTHER Allergies: Coded Allergies: NO KNOWN ALLERGIES (Unverified , 08/11/09) Home Meds Active Scripts Doxycycline (Monohydrate) (Doxycycline) 100 Mg Cap, 100 MG PO BID, #10 CAP Prov:MATIAS LOPEZ MD 04/20/23 Metoprolol Tartrate (Lopressor) 25 Mg Tb, 50 MG PO BID, #120 TAB Take 2 tablets (50 mg) twice a day. Hold for heart rate below 60. Prov:MATIAS LOPEZ MD 04/20/23 Clopidogrel Bisulfate (Plavix) 75 Mg Tab, 1 TAB PO DAILY, #30 TAB Prov:MATIAS LOPEZ MD 04/20/23 Review of Systems CONSTITUTIONAL: Denies acute: fever, diaphoresis, chills, HEAD: Denies acute: headache, photophobia Eyes: Denies acute: Double vision, vision loss, eye pain, eye discharge. EARS: Denies acute: tinnitus, hearing loss, ear discharge, ear pain, THROAT: Denies acute: sore throat, swelling, difficulty swallowing , pain with swallowing, change in voice. NECK: Denies acute: neck pain, neck swelling, stiff neck. HEART: Denies acute : chest pain, palpitations, LUNGS: Denies acute: SOB, wheezing, cough, hemoptysis ABDOMEN: Denies acute: abdominal pain, Nausea, Vomiting, diarrhea, , hematemesis, hematochezia SKIN:Denies acute: rash, redness, lesions, itchiness. EXTREMITIES:Denies acute: calf pain, numbness, tingling, weakness, denies pain in extremity.Denies acute: Low back pain. Neuro:Denies acute: focal neurological deficit, motor or sensory focal neurological deficit, tremors, seizure like activity, confusion, change in mental status, loss of bowel or bladder function, cauda equina like symptoms. : Denies acute: dysuria, hematuria, flank pain, increase in urinary frequency. PSYCH: Denies acute: hallucination, suicidal ideation, homicidal ideation. FEMALE: Denies acute: abnormal vaginal bleeding, foul odor, unusual discharge. Vital Signs Vital Signs Date Time Temp Pulse Resp B/P (MAP) Pulse Ox O2 Delivery O2 Flow Rate FiO2 04/27/24 13:00 131/44 04/27/24 12:00 41 04/27/24 11:00 17 04/27/24 07:00 98 04/26/24 21:00 Room Air* 0 21 04/26/24 19:30 98.4 98.4 Physical Exam GENERAL: Awake, alert, oriented. LUNGS: Clear. CARDIOVASCULAR: Bradycardic. ABDOMEN: Soft. Labs/Diagnostic Data Labs Test 04/27/24 07:50 04/26/24 03:27 04/25/24 16:26 04/25/24 13:15 Range/Units White Blood Count 5.4 4.4-10.8 10^3/uL Red Blood Count 3.67 L 4.0-5.20 10^6/uL Hemoglobin 12.0 L 12.2-16.2 g/dL Hematocrit 36.3 36.0-46.0 % Mean Corpuscular Volume 98.8 80.0-100.0 fL Mean Corpuscular Hemoglobin 32.7 H 28.0-32.0 pg Mean Corpuscular Hemoglobin Concent 33.1 32.0-36.0 g/dL Red Cell Distribution Width 14.3 11.8-14.3 % Platelet Count 133 L 140-450 10^3/uL Mean Platelet Volume 9.0 6.9-10.8 fL Neutrophils (%) (Auto) 75.0 37.0-80.0 % Lymphocytes (%) (Auto) 10.9 10.0-50.0 % Monocytes (%) (Auto) 13.3 H 0.0-12.0 % Eosinophils (%) (Auto) 0.3 0.0-7.0 % Basophils (%) (Auto) 0.5 0.0-2.0 % Neutrophils # (Auto) 4.0 1.6-8.6 10 ^3/uL Lymphocytes # (Auto) 0.6 0.4-5.4 10 ^3/uL Monocytes # (Auto) 0.7 0-1.3 10 ^3/uL Eosinophils # (Auto) 0 0-0.8 10 ^3/uL Basophils # (Auto) 0 0-0.2 10 ^3/uL Nucleated Red Blood Cells 0.1 % Sodium Level 146 #H 136-145 mmol/L Potassium Level 4.2 3.5-5.1 mmol/L Chloride Level 114 #H 98-107 mmol/L Carbon Dioxide Level 25 20-31 mmol/L Anion Gap 7 5-15 Blood Urea Nitrogen 31 H 9-23 mg/dL Creatinine 1.06 H 0.550-1.02 mg/dL Glomerular Filtration Rate Calc 51 >90 mL/min BUN/Creatinine Ratio 29.2 H 10.0-20.0 Serum Glucose 100 74-106 mg/dL Calcium Level 9.1 8.7-10.4 mg/dL Magnesium Level 2.3 1.6-2.6 mg/dL Total Bilirubin 1.5 H 0.2-1.0 mg/dL Aspartate Amino Transferase (AST) 19 13-40 U/L Alanine Aminotransferase (ALT) 12 7-40 U/L Alkaline Phosphatase 67 46-116 U/L Total Protein 6.9 5.7-8.2 g/dL Albumin 3.7 3.2-4.8 g/dL Urine Color Yellow Yellow Urine Clarity Turbid H Clear Urine pH 5.0 5.0-9.0 Urine Specific [place] 1.024 1.001-1.035 Urine Protein 1+ H Negative Urine Ketones Negative Negative Urine Blood Negative Negative /uL Urine Nitrite Negative Negative Urine Bilirubin Negative Negative Urine Urobilinogen 3 H Negative mg/dL Urine Leukocyte Esterase 1+ Negative /uL Urine RBC 15 0 - 4 /hpf Urine WBC 11 0 - 5 /hpf Urine Squamous Epithelial Cells Few <5 /hpf Urine Bacteria None seen None Seen /hpf Urine Mucus Few None Seen Urine Glucose Normal Normal mg/dL Troponin I High Sensitivity 203 *H </=34 ng/L Prothrombin Time 11.1 9.3-11.8 sec Prothrombin Time INR 1.05 0.9-1.15 Activated Partial Thromboplast Time 28.2 24.5-34.5 SEC Hemoglobin A1c 5.8 H <5.7 % A1C Lactic Acid Level 1.7 0.4-2.0 mmol/L B-Type Natriuretic Peptide > 5000.00 0-100 pg/mL Triglycerides Level 56 < 150 mg/dL Cholesterol Level 156 < 200 mg/dL LDL Cholesterol 67 < 100 mg/dL HDL Cholesterol 81 H 40-59 mg/dL Thyroid Stimulating Hormone (TSH) 2.25 0.55-4.78 uIU/mL Assessment Acute symptomatic bradycardia/complete heart block. Paroxysmal AFib. Hypertensive urgency. Acute on chronic decompensated HFrEF, NYHA Class II. Elevated troponin. Alzheimer dementia. Dyslipidemia. Plan/Recommendation I agree with your ongoing assessment and care of plan. Permanent pacemaker insertion. Risks and benefits discussed with the patient. Dopamine GTT. Morphine and [place] for pain management. Atropine for HR less than 40. IV antibiotics as ordered. Metoprolol. DVT prophylactics. IV Hydralazine for SBP > 150. Additional plan as per the hospital course. A total of 45 minutes was spent reviewing the patient record, examining the patient, making a diagnostic and therapeutic plan, discussing this plan with medical personnel, following up on diagnostic studies and following the patient for clinical stability excluding any and all procedures. At least 50% of this time was spent in direct, [id number] contact. Plan discussed with: Patient MARTI GALAVIZ MD Apr 27, 2024 16:00
[2024-04-28] VITALS (14 sets, daily range): BP systolic 93–152; BP diastolic 38–55; PULSE 71–94; RESP 18–20; TEMP 97.8–98.8; O2SAT 93–97
--- NOTE | 2024-04-28 07:41 | DVHSR ---
APPROVED REPORT EXAM: Two-dimensional and M-mode echocardiogram with Doppler and color Doppler. Blood Pressure: 174/60 mmHg INDICATION CHF RISK FACTORS Height: 5' 4", Weight: 130 DIMENSIONS LVDd4.3 (3.8-5.7cm)LA (2D)5.2 (1.9-4.0cm)Aortic Root3.2 (2.0-3.7cm) LVDs3.7 (2.5-4.0cm)LA (MM) (1.9-4.0cm)Aortic Cusp Exc1.5 (1.5-2.0cm) EF (%) 30.0 (55-70%)Rt. Atrium4.6 (1.9-4.0cm)Asc. Aorta cm IVSd1.3 (0.7-1.1cm)RV (D) (1.8-2.4cm) PWd1.2 (0.7-1.1cm) Mitral Valve MitralMitral Stenosis E wave1.30m/sMV Mean GR.mmHg A wave0.60m/sMV Peak GR.mmHg E/A ratio2.22D MVAcm2 Aortic Valve Aortic ValveAortic Stenosis V11.00m/[place] Mean GR.7mmHg V22.00m/[place] Peak GR.17mmHg LVOT Diameter1.9 (1.8-2.4cm)Doppler AVA1.42cm2 AI P 1/2 Rmtw587.30ms Pulmonic Valve V20.50m/s Tricuspid Valve TR Velocity2.90m/s [id number] Conclusion dilated LV LVEF 35-40% by visual estimate aortic sclerosis, mild aortic regurg mild mitral stenosis left atrium marked enlargement moderate tricuspid regurg
--- NOTE | 2024-04-28 08:21 | ECG ---
[facility] Test Date: 2024-04-27 Test Time: 22:34:05 Pat Name: HEMANT ROSS Department: Room: 0222T B Gender: F Lamps Tester And Inspector: CARLOTTA FRYE : 1935 Requested By: MARTI GALAVIZ Order Number: [id number] Reading MD: Krystian Arceo Measurements Intervals [place] Rate: 90 P: 58 ME: 188 QRS: -21 QRSD: 154 T: 126 QT: 450 QTc: 550 Interpretive Statements Electronic ventricular pacemaker Likely sinus rhythm Electronically Signed On 04-28-2024 8:53:20 PST by Krystian Arceo Please click the below link to view image of tracing.
[2024-04-28] MEDS ORDERED: VANCOMYCIN 1GM/250ML KIT 250 ML IV SCH (09:00)
[2024-04-28] MEDS: ceFAZolin 1GM/50ML 50 ML IV SCH (10:53)
--- NOTE | 2024-04-28 14:02 | ECG ---
[facility] Test Date: 2024-04-26 Test Time: 05:12:52 Pat Name: HEMANT ROSS Department: ER Room: 0222T B Gender: F Business Process Engineer: BENNETT : 1935 Requested By: DEBI ROWE Order Number: [id number] Reading MD: Teddy Chisholm Measurements Intervals [place] Rate: 41 P: 0 FL: 0 QRS: 127 QRSD: 169 T: 21 QT: 682 QTc: 564 Interpretive Statements Normal sinus rhythm Paired ventricular premature complexes Right bundle branch block Baseline wander in lead(s)avr, avl, avf Electronically Signed On 04-29-2024 18:15:49 PST by Teddy Chisholm Please click the below link to view image of tracing.
[2024-04-28] MEDS: HYDROcodone-ACET 5/325MG TAB PO PRN (14:54)
--- NOTE | 2024-04-28 16:36 | DVHPN2 ---
Subjective 88-year-old female with a known history of congestive heart failure unspecified, recent diagnosis of AFib currently on beta linda and Plavix, Alzheimer dementia brought in by paramedics with a dizziness and palpitation found to have complete heart block and symptomatic bradycardia. Patient was status post permanent pacemaker placement Reviewed: Care Plan Changes from previous H/P or p: No Changes Objective Vitals Vital Signs Date Time Temp Pulse Resp B/P (MAP) Pulse Ox O2 Delivery O2 Flow Rate FiO2 04/28/24 14:55 81 140/50 04/28/24 12:55 98.8 20 96 98.8 04/28/24 03:40 Room Air* 0 21 Intake/Output Intake and Output 04/28/24 07:00 Intake Total 1308.675 ml Output Total 800 ml Balance 508.675 ml Intake Oral 600 ml IV Total 708.675 ml Output Urine Total 800 ml Exam HEENT pupils are reactive Neck is supple CV is S1-S2 regular rhythm paced Respiratory diminished breath sounds bases GI positive bowel sound Extremity no edema 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 Medications Current Medications Medications Dose Ordered Sig/[place] Route Start Time Stop Time Status Last Admin Dose Admin Acetaminophen/ Hydrocodone Bitart 1 tab Q4HP PRN PO 04/25/24 16:30 04/28/24 14:54 1 TAB Ondansetron HCl 4 mg Q4HP PRN IV 04/25/24 16:30 Enoxaparin Sodium 30 mg DAILY SC 04/26/24 10:00 04/28/24 10:00 30 MG Acetaminophen 650 mg Q6HP PRN PO 04/25/24 16:30 Morphine Sulfate 2 mg Q4HPRN PRN IV 04/25/24 16:30 Nitroglycerin 0.4 mg Q5MINP PRN SL 04/25/24 16:30 Morphine Sulfate 2 mg Q30M PRN IV 04/25/24 16:30 Atropine Sulfate 1 mg Q4HPRN PRN IV 04/25/24 20:00 04/25/24 20:25 1 MG Vancomycin HCl 250 ml @ 250 mls/hr O IV 04/28/24 09:00 Cancel Cefazolin Sodium 50 ml @ 100 mls/hr Q8HR IV 04/28/24 10:00 04/28/24 14:55 100 MLS/HR Hydralazine HCl 10 mg Q2HR PRN IV 04/27/24 21:45 04/27/24 22:04 10 MG Metoprolol Tartrate 25 mg TID PO 04/27/24 22:00 04/28/24 14:55 25 MG Laboratory Results Laboratory Tests 04/27/24 07:50 Urinalysis Test 04/26/24 03:27 Urine Color Yellow (Yellow) Urine Clarity Turbid (Clear) H Urine pH 5.0 (5.0-9.0) Urine Specific [place] 1.024 (1.001-1.035) Urine Protein 1+ (Negative) H Urine Ketones Negative (Negative) Urine Blood Negative /uL (Negative) Urine Nitrite Negative (Negative) Urine Bilirubin Negative (Negative) Urine Urobilinogen 3 mg/dL (Negative) H Urine Leukocyte Esterase 1+ /uL (Negative) Urine RBC 15 /hpf (0 - 4) Urine WBC 11 /hpf (0 - 5) Urine Squamous Epithelial Cells Few /hpf (<5) Urine Bacteria None seen /hpf (None Seen) Urine Mucus Few (None Seen) Urine Glucose Normal mg/dL (Normal) Assessment/Plan Assessment/Plan 88-year-old female with a known history of congestive heart failure unspecified, recent diagnosis of AFib currently on beta linda and Plavix, Alzheimer dementia brought in by paramedics with a dizziness and palpitation found to have 1. Acute symptomatic bradycardia/complete heart block status post permanent pacemaker placement 2. Paroxysmal AFib 3. Hypertensive urgency , improved 4. Congestive heart failure unspecified 5. Elevated troponin 6. Alzheimer dementia -patient was status post permanent pacemaker placement -retail specialist's recommendations noted -social service consultation for home health home safety evaluation and discharge plan. Plan discussed with: Patient, Other My Orders Orders - LUZ ELENA FONG MD Procedure Category Date Status Time Mrsa Screen MIKAELA 04/28/24 In Process 06:47 Date of Service: Apr 28, 2024 Billing Provider: LUZ ELENA FONG MD Common Visit Codes: NOT BILLABLE LUZ ELENA FONG MD Apr 28, 2024 16:36
--- NOTE | 2024-04-28 23:15 | DVHPN2 ---
Progress Note - Dictate Date Seen: Apr 28, 2024 Medical Necessity Reason Pt with a Central, PICC or Fol: No Subjective Patient was seen and evaluated in follow up. Patient is s/p emergency left subclavian venography, implantation of a dual-chamber permanent pacemaker from left subclavian region (Biotronik device and MRI proof). Patient tolerated procedure well. She will see me back in the office after few weeks to remove the dressing. Chest x-ray shows interval placement of a dual-chamber pacemaker with pulse generator over the left chest. vital signs Vital Sign Date Time Temp Pulse Resp B/P (MAP) Pulse Ox O2 Delivery O2 Flow Rate FiO2 04/28/24 21:40 93 124/53 04/28/24 21:00 97.8 20 96 97.8 04/28/24 08:00 Room Air* 0 21 Total Intake and Output 04/27/24 04/27/24 04/28/24 15:00 23:00 07:00 Intake Total 515.400 ml 193.275 ml 600 ml Output Total 250 ml 550 ml Balance 515.400 ml -56.725 ml 50 ml medications Current Medications Medications Dose Ordered Sig/[place] Route Start Time Stop Time Status Last Admin Dose Admin Acetaminophen/ Hydrocodone Bitart 1 tab Q4HP PRN PO 04/25/24 16:30 04/28/24 14:54 1 TAB Ondansetron HCl 4 mg Q4HP PRN IV 04/25/24 16:30 Enoxaparin Sodium 30 mg DAILY SC 04/26/24 10:00 04/28/24 10:00 30 MG Acetaminophen 650 mg Q6HP PRN PO 04/25/24 16:30 Morphine Sulfate 2 mg Q4HPRN PRN IV 04/25/24 16:30 Nitroglycerin 0.4 mg Q5MINP PRN SL 04/25/24 16:30 Morphine Sulfate 2 mg Q30M PRN IV 04/25/24 16:30 Atropine Sulfate 1 mg Q4HPRN PRN IV 04/25/24 20:00 04/25/24 20:25 1 MG Vancomycin HCl 250 ml @ 250 mls/hr O IV 04/28/24 09:00 Cancel Cefazolin Sodium 50 ml @ 100 mls/hr Q8HR IV 04/28/24 10:00 04/28/24 21:41 100 MLS/HR Hydralazine HCl 10 mg Q2HR PRN IV 04/27/24 21:45 04/27/24 22:04 10 MG Metoprolol Tartrate 25 mg TID PO 04/27/24 22:00 04/28/24 21:40 25 MG objective GENERAL: Awake, alert, oriented. LUNGS: Clear. CARDIOVASCULAR: Heart sounds are good. ABDOMEN: Soft. laboratory and microbiology Laboratory Tests 04/27/24 07:50 Test 04/27/24 07:50 Range/Units Serum Glucose 100 74-106 mg/dL Problem List Acute symptomatic bradycardia/complete heart block. Paroxysmal AFib. Hypertensive urgency. Acute on chronic decompensated HFrEF, NYHA Class II. Elevated troponin. Alzheimer dementia. Dyslipidemia. Assessment/Plan Continued all current supportive medical care. Morphine and [place] for pain management. IV antibiotics as ordered. Metoprolol. DVT prophylactics. IV Hydralazine for SBP > 150. Additional plan as per the hospital course. Plan discussed with: Patient MARTI GALAVIZ MD Apr 28, 2024 23:14
[2024-04-29 01:00] VITALS: BP 113/69; PULSE 83; RESP 19; TEMP 98.6; O2SAT 96
[2024-04-29 08:00] VITALS: PULSE 69
[2024-04-29 09:00] VITALS: PULSE 68; RESP 17; TEMP 97.9; O2SAT 96
[2024-04-29] MEDS: STERILE WATER 10 ML ONE (10:27)
--- NOTE | 2024-04-29 12:05 | CONS ---
Pharmacy Clinical Information: CQM HF. Patient presented with complete heart block but is now status-post p acemaker placement. Patient's BP is not stable at this moment, however, HR is now stable after pacemaker placement (previously bradycardic). These factors should be noted when considering adding EBBB, ACEI/ARB/ARNI, and MRA. Additionally patient is suspected to have an acute UTI, might be beneficial to rule out or treat infection prior to starting SGLT2. PONCHO NAVARRETE PHARMACIST Apr 29, 2024 12:05
[2024-04-29 13:00] VITALS: BP 150/60; PULSE 67; RESP 16; TEMP 97.6
[2024-04-29] MEDS ORDERED: METO25TA5 PO ×2 (15:09→16:05)
--- NOTE | 2024-04-29 15:11 | DVHDS2 ---
Discharge Summary Date of Admission Apr 25, 2024 at 16:30 Date of Discharge: Apr 29, 2024 Labs/Diagnostic Data: Laboratory Results Test 04/27/24 07:50 04/26/24 03:27 04/25/24 16:26 04/25/24 13:15 White Blood Count 5.4 10^3/uL (4.4-10.8) Red Blood Count 3.67 10^6/uL (4.0-5.20) Hemoglobin 12.0 g/dL (12.2-16.2) Hematocrit 36.3 % (36.0-46.0) Mean Corpuscular Volume 98.8 fL (80.0-100.0) Mean Corpuscular Hemoglobin 32.7 pg (28.0-32.0) Mean Corpuscular Hemoglobin Concent 33.1 g/dL (32.0-36.0) Red Cell Distribution Width 14.3 % (11.8-14.3) Platelet Count 133 10^3/uL (140-450) Mean Platelet Volume 9.0 fL (6.9-10.8) Neutrophils (%) (Auto) 75.0 % (37.0-80.0) Lymphocytes (%) (Auto) 10.9 % (10.0-50.0) Monocytes (%) (Auto) 13.3 % (0.0-12.0) Eosinophils (%) (Auto) 0.3 % (0.0-7.0) Basophils (%) (Auto) 0.5 % (0.0-2.0) Neutrophils # (Auto) 4.0 10 ^3/uL (1.6-8.6) Lymphocytes # (Auto) 0.6 10 ^3/uL (0.4-5.4) Monocytes # (Auto) 0.7 10 ^3/uL (0-1.3) Eosinophils # (Auto) 0 10 ^3/uL (0-0.8) Basophils # (Auto) 0 10 ^3/uL (0-0.2) Nucleated Red Blood Cells 0.1 % Sodium Level 146 mmol/L (136-145) Potassium Level 4.2 mmol/L (3.5-5.1) Chloride Level 114 mmol/L (98-107) Carbon Dioxide Level 25 mmol/L (20-31) Anion Gap 7 (5-15) Blood Urea Nitrogen 31 mg/dL (9-23) Creatinine 1.06 mg/dL (0.550-1.02) Glomerular Filtration Rate Calc 51 mL/min (>90) BUN/Creatinine Ratio 29.2 (10.0-20.0) Serum Glucose 100 mg/dL (74-106) Calcium Level 9.1 mg/dL (8.7-10.4) Magnesium Level 2.3 mg/dL (1.6-2.6) Total Bilirubin 1.5 mg/dL (0.2-1.0) Aspartate Amino Transferase (AST) 19 U/L (13-40) Alanine Aminotransferase (ALT) 12 U/L (7-40) Alkaline Phosphatase 67 U/L (46-116) Total Protein 6.9 g/dL (5.7-8.2) Albumin 3.7 g/dL (3.2-4.8) Urine Color Yellow (Yellow) Urine Clarity Turbid (Clear) Urine pH 5.0 (5.0-9.0) Urine Specific [place] 1.024 (1.001-1.035) Urine Protein 1+ (Negative) Urine Ketones Negative (Negative) Urine Blood Negative /uL (Negative) Urine Nitrite Negative (Negative) Urine Bilirubin Negative (Negative) Urine Urobilinogen 3 mg/dL (Negative) Urine Leukocyte Esterase 1+ /uL (Negative) Urine RBC 15 /hpf (0 - 4) Urine WBC 11 /hpf (0 - 5) Urine Squamous Epithelial Cells Few /hpf (<5) Urine Bacteria None seen /hpf (None Seen) Urine Mucus Few (None Seen) Urine Glucose Normal mg/dL (Normal) Troponin I High Sensitivity 203 ng/L (</=34) Prothrombin Time 11.1 sec (9.3-11.8) Prothrombin Time INR 1.05 (0.9-1.15) Activated Partial Thromboplast Time 28.2 SEC (24.5-34.5) Hemoglobin A1c 5.8 % A1C (<5.7) Lactic Acid Level 1.7 mmol/L (0.4-2.0) B-Type Natriuretic Peptide > 5000.00 pg/mL (0-100) Triglycerides Level 56 mg/dL (< 150) Cholesterol Level 156 mg/dL (< 200) LDL Cholesterol 67 mg/dL (< 100) HDL Cholesterol 81 mg/dL (40-59) Thyroid Stimulating Hormone (TSH) 2.25 uIU/mL (0.55-4.78) Other Laboratory Tests 04/27/24 07:50 Brief Hx & Hospital Course: 88-year-old female with a known history of congestive heart failure unspecified, recent diagnosis of AFib currently on beta linda and Plavix, Alzheimer dementia brought in by paramedics with a dizziness and palpitation found to have acute symptomatic bradycardia with complete heart block. Patient was seen by Cardiology. Patient underwent permanent pacemaker placement. Postoperatively patient did fairly well. Patient was cleared by Cardiology to be discharged on metoprolol tartrate 50 mg p.o. t.i.d.. Patient has had confusion episodes but she does have underlying Alzheimer dementia. Prescription has been sent to the pharmacy. Patient is being discharged under stable condition with close follow up as an outpatient with the PCP as well as Cardiology in 1-2 weeks patient will be given p.o. antibiotics and beta linda. Condition at Discharge: Stable Final Diagnosis/Problems List 1. Acute symptomatic bradycardia/complete heart block status post permanent pacemaker placement 2. Paroxysmal AFib 3. Hypertensive urgency , improved 4. Congestive heart failure unspecified 5. Elevated troponin 6. Alzheimer dementia Discharge Disposition: Home with Health Services SNF Discharge Will this Physician continue t: No Discharge Instruct/Medications Diet: Cardiac 2g Na,low cholest Activity: No Restrictions, As Tolerated Follow Up/Referral: Follow up with the PCP in 1-2 weeks follow up with Dr. Forrest Galvan in one week Medications: Beta linda Discharge Statement: "Patient was advised to return to the ER or call 911 if any headaches, dizziness, shortness of breath, chest pain, abdominal pain, bleeding, fevers, or worsening of medical condition. Patient was counseled about treatment plan, medications, possible side effects, patientverbalized understanding. All questions were answered to the best of my ability. This discharge took greater then 30 minutes in planning, reviewing documentation, counseling the patient, and discussing with other team members." ASSESSMENT ASSESSMENT Assessment 88-year-old female with a known history of congestive heart failure unspecified, recent diagnosis of AFib currently on beta linda and Plavix, Alzheimer dementia brought in by paramedics with a dizziness and palpitation found to have 1. Acute symptomatic bradycardia/complete heart block status post permanent pacemaker placement 2. Paroxysmal AFib 3. Hypertensive urgency , improved 4. Congestive heart failure unspecified 5. Elevated troponin 6. Alzheimer dementia Date of Service: Apr 29, 2024 Billing Provider: LUZ ELENA FONG MD Common Visit Codes: NOT BILLABLE LUZ ELENA FONG MD Apr 29, 2024 15:11
[2024-04-29] MEDS ORDERED: DOXY-286 PO (16:05)
[2024-04-29 16:42] VITALS: BP 155/48; PULSE 68; RESP 17; TEMP 97.9; O2SAT 96
--- NOTE | 2024-04-29 22:36 | DVHPN2 ---
Progress Note - Dictate Date Seen: Apr 29, 2024 Medical Necessity Reason Pt with a Central, PICC or Fol: No Subjective Patient was seen and evaluated in follow up. Patient has no new complaints at this time. Patient denies any cardiac symptoms. Patient is cardiac stable for discharge. vital signs Vital Sign Date Time Temp Pulse Resp B/P (MAP) Pulse Ox O2 Delivery O2 Flow Rate FiO2 04/29/24 16:42 97.9 68 17 155/48 (83) 96 97.9 04/29/24 08:00 Room Air* 0 21 Total Intake and Output 04/28/24 04/28/24 04/29/24 15:00 23:00 07:00 Intake Total 300 ml 550 ml 350 ml Output Total 500 ml 600 ml Balance 300 ml 50 ml -250 ml medications Current Medications Medications Dose Ordered Sig/[place] Route Start Time Stop Time Status Last Admin Dose Admin Vancomycin HCl 250 ml @ 250 mls/hr O IV 04/28/24 09:00 Cancel objective GENERAL: Awake, alert, oriented. LUNGS: Clear. CARDIOVASCULAR: Heart sounds are good. ABDOMEN: Soft. laboratory and microbiology Laboratory Tests 04/27/24 07:50 Test 04/27/24 07:50 Range/Units Serum Glucose 100 74-106 mg/dL Problem List Acute symptomatic bradycardia/complete heart block. Paroxysmal AFib. Hypertensive urgency. Acute on chronic decompensated HFrEF, NYHA Class II. Elevated troponin. Alzheimer dementia. Dyslipidemia. Assessment/Plan Continued all current supportive medical care. Morphine and [place] for pain management. IV antibiotics as ordered. Metoprolol. DVT prophylactics. IV Hydralazine for SBP > 150. Additional plan as per the hospital course. Plan discussed with: Patient MATRI GALAVIZ MD Apr 29, 2024 22:35
--- NOTE | 2024-04-30 09:28 | ECG ---
[facility] Test Date: 2024-04-26 Test Time: 05:12:04 Pat Name: HEMANT ROSS Department: ER Room: 0222T B Gender: F Stack Matcher: BENNETT : 1935 Requested By: DEBI ROWE Order Number: [id number] Reading MD: Teddy Chisholm Measurements Intervals [place] Rate: 82 P: 0 VA: 89 QRS: 142 QRSD: 135 T: 72 QT: 456 QTc: 533 Interpretive Statements Sinus bradycardia Paired ventricular premature complexes Short VA interval Probable left atrial enlargement Consider left ventricular hypertrophy Electronically Signed On 05-01-2024 9:43:50 PST by Teddy Chisholm Please click the below link to view image of tracing.
--- NOTE | 2024-04-30 15:10 | ECG ---
[facility] Test Date: 2024-04-25 Test Time: 15:33:04 Pat Name: HEMANT ROSS Department: er Room: 0222T B Gender: F Medicine Technologist: eloisa : 1935 Requested By: DEBI ROWE Order Number: [id number] Reading MD: Teddy Chisholm Measurements Intervals [place] Rate: 42 P: -30 DC: 0 QRS: -49 QRSD: 134 T: 54 QT: 677 QTc: 566 Interpretive Statements AV block, complete (third degree) Nonspecific IVCD with LAD Left ventricular hypertrophy Abnormal T, consider ischemia, anterior leads ST elevation, consider inferior injury Baseline wander in lead(s) III,aVF Electronically Signed On 05-01-2024 9:42:25 PST by Teddy Chisholm Please click the below link to view image of tracing.
== END 2024-04-29 19:21 | disposition home health service (06) | DRG 242 ==
LOC: EDBD 12:15 → ER 12:15 → TELE 16:30 → CATH ICU 04-27 20:22 → TELE-CENTR 04-27 23:40
PROVIDERS: ADMIT Internal Medicine; ATTEND Internal Medicine
PROC: B517YZZ Fluoroscopy of Left Subclavian Vein using Other Contrast (ICD-10-PCS; principal; 2024-04-27)
PROC: 0JH606Z Insertion of Pacemaker, Dual Chamber into Chest Subcutaneous Tissue and Fascia, Open Approach (ICD-10-PCS; 2024-04-27)
PROC: 02H63JZ Insertion of Pacemaker Lead into Right Atrium, Percutaneous Approach (ICD-10-PCS; 2024-04-27)
PROC: 02HK3JZ Insertion of Pacemaker Lead into Right Ventricle, Percutaneous Approach (ICD-10-PCS; 2024-04-27)
DX: I44.2 Atrioventricular block, complete (principal); I21.A1 Myocardial infarction type 2; I50.23 Acute on chronic systolic (congestive) heart failure; F02.82 Dementia in other diseases classified elsewhere, unspecified severity, with psychotic disturbance; I13.0 Hypertensive heart and chronic kidney disease with heart failure and stage 1 through stage 4 chronic kidney disease, or unspecified chronic kidney disease; I48.0 Paroxysmal atrial fibrillation; G30.9 Alzheimer's disease, unspecified; I16.0 Hypertensive urgency; N18.9 Chronic kidney disease, unspecified; Z96.642 Presence of left artificial hip joint; E78.5 Hyperlipidemia, unspecified; Z90.49 Acquired absence of other specified parts of digestive tract; Z82.0 Family history of epilepsy and other diseases of the nervous system; Z82.3 Family history of stroke; Z82.49 Family history of ischemic heart disease and other diseases of the circulatory system; Z79.899 Other long term (current) drug therapy
CPT/HCPCS: 33208; 36415; 71045; 80053; 80061; 81001; 83036; 83605; 83735; 83880; 84443; 84484; 85025; 85610; 85730; 86850; 86900; 86901; 87081; 93005; 93306; 99152; C1894; G0378; J2250; J2405; Q9967